=== PATIENT | female | born 1985 | race Caucasian/White ===

== ENCOUNTER → 2020-08-12 00:08 | Outpatient (CLI) | payer BC, SELFPAY ==
[2020-08-12 18:21] LABS: SARS-CoV-2 RNA PCR Negative
== END ==
PROVIDERS: PCP Family Medicine; Visit Provider Obstetrics & Gynecology
DX: Z01.812 Encounter for preprocedural laboratory examination (principal); Z20.822 Contact with and (suspected) exposure to COVID-19
CPT/HCPCS: C9803; U0003; U0005

== ENCOUNTER 2020-08-14 02:00 | Day surgery (SDC) | payer BC, SELFPAY ==
[2020-08-11 18:09] VITALS: BMI 29.7
--- NOTE | 2020-08-13 13:00 | WPDANESEPPF ---
Anes - Initial Pre Proc Eval Procedure: Operation Date: 08/14/20 13:15 Proposed Procedures p Suction Dilatation and Curettage - Dragan Connolly MD Date/Time: 08/13/20 13:00 Surgeon: Dragan Connolly MD Pre Op Diagnosis: missed AB Patient Data Age: 35 Gender: F Height: 1.65 m Weight: 81 kg Allergies Allergy/AdvReac Type Severity Reaction Status Date / Time No Known Allergies Allergy Verified 08/14/20 11:19 Home Medications Medication Instructions Recorded Confirmed Type albuterol sulfate 90 mcg/actuation 2 inhalation INHALATION Q4-6H PRN 02/19/19 08/11/20 History breath activated powder inhaler cholecalciferol (vitamin D3) 125 125 mcg PO DAILY 06/02/20 08/14/20 History mcg (5,000 unit) capsule montelukast 10 mg tablet 10 mg PO DAILY tablet 06/02/20 08/14/20 History Patient hx anesthesia problems: none Family hx anesthesia problems: none PMFSH Past Medical History Medical History (Updated 08/13/20 @ 13:01 by Jamari Signh DO) Asthma Environmental allergies Exercise-induced asthma GERD (gastroesophageal reflux disease) Hx of Raynaud's syndrome Irritable bowel syndrome with constipation and diarrhea Raynaud disease Family History Family History Father Diabetes mellitus Grandparent Diabetes mellitus Family history of cardiovascular disease Mother Depression Hypertension Family history of elevated blood lipids Sibling Family history of cardiovascular disease Social History Social History Smoking status: Never smoker Smoking end date: 04/17/14 Alcohol intake: current Substance use: never Substance use type: does not use Living arrangements: with family Gender identity (if verbalized by the patient): Female Sexual Orientation (if Verbalized by the Patient): Straight or Heterosexual Spiritual care concerns: No Anes - Eval Final PreProcedure Day of Procedure 08/13/20 13:00 Patient weight: overweight Heart: regular rate and rhythm Lungs: clear to auscultation and normal air movement Airway: Mallampati scale class II Neurological: alert and oriented Last oral intake: >/= 8 hours ASA classification: II Emergent: no Anesthetic plan: proceed Anesthesia type and monitoring: general GIVS and standard monitoring Informed Consent: The patient's anesthetic plan and its attendant risks and benefits were discussed with the patient/family/POA. Questions were solicited and answers provided to the satisfaction of the patient/family/POA.
[2020-08-14] MEDS: LACTATED RINGERS 1,000 ML 30 ML IV CONT (11:45)
[2020-08-14] MEDS: ACETAMINOPHEN 500 MG TABLET 1000 MG PO (11:46)
[2020-08-14 11:48] VITALS: BP 136/81; PULSE 94; RESP 16; TEMP 36.6; O2SAT 100
--- NOTE | 2020-08-14 12:58 | PM.IMHP ---
H&P: HPI History of Present Illness Date/Time: 08/14/20 12:58 35 y/o G1 with LMP 06/03/20. Ultrasound exam shows an intrauterine fluid collection, but no embryo seen, despite an hcg level of 18.752. Follow up ultrasound exam a week later showed no significant changes. She has had no vaginal bleeding. Chief Complaint: Miscarriage Review of Systems Review of Systems: All systems reviewed & are unremarkable except as noted in HPI and below PMFSH Past Medical History Medical History Asthma Environmental allergies Exercise-induced asthma GERD (gastroesophageal reflux disease) Hx of Raynaud's syndrome Irritable bowel syndrome with constipation and diarrhea Raynaud disease Family History Family History Father Diabetes mellitus Grandparent Diabetes mellitus Family history of cardiovascular disease Mother Depression Hypertension Family history of elevated blood lipids Sibling Family history of cardiovascular disease Social History Social History Smoking status: Never smoker Smoking end date: 04/17/14 Alcohol intake: current Substance use: never Substance use type: does not use Living arrangements: with family Gender identity (if verbalized by the patient): Female Sexual Orientation (if Verbalized by the Patient): Straight or Heterosexual Spiritual care concerns: No Meds Home Medications and Allergies Home Medications Medication Instructions Recorded Confirmed Type albuterol sulfate 90 mcg/actuation 2 inhalation INHALATION Q4-6H PRN 02/19/19 08/11/20 History breath activated powder inhaler cholecalciferol (vitamin D3) 125 125 mcg PO DAILY 06/02/20 08/14/20 History mcg (5,000 unit) capsule montelukast 10 mg tablet 10 mg PO DAILY tablet 06/02/20 08/14/20 History Allergies Allergy/AdvReac Type Severity Reaction Status Date / Time No Known Allergies Allergy Verified 08/14/20 11:19 Vital Signs Vital Signs - 24 hr 08/14/20 11:48 Temperature 36.6 C Pulse Rate 94 Respiratory Rate 16 Blood Pressure 136/81 Pulse Oximetry 100 Exam Narrative: Exam Narrative: AVSS Const: Orientation/consciousness: patient oriented x3 Other: Well-developed, well-nourished female in no acute distress. Neck: Thyroid: thyroid normal Lymphatic: no lymphadenopathy noted (in neck, axilla or inguinal nodes) Resp: Effort & Inspection: normal respiratory effort Auscultation: clear to auscultation bilaterally Cardio: Rate: regular rate Rhythm: regular rhythm Heart sounds: S1 normal heart sound present and S2 normal heart sound present GI: Other: ABD: Soft, nontender, nondistended. No guarding or rebound tenderness. No hepatosplenomegaly. : General: Yes no CVA tenderness Other: External genitalia: normal female hair distribution, without lesion. Urethral meatus: no lesion, non prolapsed. Bladder: no mass, nontender Vagina: well-estrogenized, without lesion or discharge. No cystocele or rectocele. Cervix: no lesion or discharge. Uterus: small, anteverted, freely mobile, nontender Adnexa: no mass or tenderness. Anus/perineum: no lesions, nontender Back/Spine/Pelvis: Back: no CVA tenderness Skin: General skin exam: normal color and no rashes or lesions noted Neuro: General: patient oriented x3 Extrem: Other: Extremities: nontender with no edema Psych: Mental Status: mental status grossly normal Affect: normal affect Assessment and Plan Assessment and plan (1) Missed : Code(s): O02.1 - Missed Status: Acute Assessment and Plan: A: Missed SAB P: Offered expectant management vs. surgical treatment. She opts for the latter. Specifically, I have offered her a dilation and suction curettage. She understands risks of surgery to include risks of anesthesia, risks of pain, infecti
--- NOTE | 2020-08-14 13:56 | WPDHPUPDATE1 ---
History and Physical Update Update Date/Time: 08/14/20 13:56 History and Physical has been reviewed, including an updated exam of the patient. There are NO changes in the patient's condition. Risks, benefits, and alternatives have been discussed and questions answered. Patient agrees to proceed with procedure.
--- NOTE | 2020-08-14 14:38 | PM.PROC ---
Procedure Note - Detailed Date of procedure: 08/14/20 Pre-op diagnosis: missed AB Post-op diagnosis: same Procedure performed: Dilation and suction curettage Description of procedure: The patient was taken to the operating room where she was prepared and draped in the usual sterile fashion in the dorsal lithotomy position. The bladder was drained with a red rubber catheter. A sterile speculum was placed into the vagina. The anterior lip of the cervix was grasped with a single-tooth tenaculum. Ten mL of 1% lidocaine was administered in a paracervical block. The cervix was gently dilated using Hegar dilators until an 8mm dilator could be passed. The 8mm curved tip suction curette was advanced. Suction curettage was performed and products of conception were aspirated. Sharp curettage was then performed until a good uterine cry was noted. A final pass with the suction curette was made. The tenaculum was removed. Hemostasis was excellent. Sponge, lap, needle and instrument counts were correct. The patient was taken to the recovery room in stable condition. I was present and scrubbed for the entire procedure. Anesthesia: MAC and local (paracervical block) Surgeon: Dragan Connolly MD Estimated blood loss (mL): 50 Drains: No Packing: No Pathology: yes (endometrial curettings) Complications: None Condition: stable Disposition: PACU Findings: Products of conception noted.
[2020-08-14 14:40] VITALS: BP 114/72; PULSE 96; RESP 16; O2SAT 99
[2020-08-14] MEDS: KETOROLAC 15 MG/ML VIAL (*BKC) IV PUSH (15:05)
[2020-08-14 15:10] VITALS: BP 113/81; PULSE 74
== END 2020-08-14 15:25 | disposition home or self-care (01) ==
PROVIDERS: PCP Family Medicine; Visit Provider Obstetrics & Gynecology
PROC: (CPT 59820; principal; 2020-08-14 13:15)
DX: O02.1 Missed abortion (principal); Z79.51 Long term (current) use of inhaled steroids; J45.909 Unspecified asthma, uncomplicated; K21.9 Gastro-esophageal reflux disease without esophagitis; I73.00 Raynaud's syndrome without gangrene; K58.2 Mixed irritable bowel syndrome
CPT/HCPCS: 59820; 36415; 85461; 88305; A9270; J1885; J2250; J2704; J3010; J7120

== ENCOUNTER 2021-09-30 05:08 | Inpatient (IN) | payer OTHER, SELFPAY ==
[2021-09-30] VITALS (202 sets, daily range): BP systolic 98–157; BP diastolic 44–103; PULSE 62–154; RESP 16; TEMP 36.1–36.9; O2SAT 96–100; BMI 31.5
--- OUTSIDE RECORDS SUMMARY | 2021-09-30 05:12 | XMS_ITS ---
:1985 Author Care Team Providers Name Role Phone David Hodge Primary Care Provider Unavailable Allergies Code Code System Name Reaction Severity Status Onset NKDA ? Medications Name Status Start Date Stop Date ? ? albuterol sulfate HFA 90 mcg/actuation aerosol inhaler Active ? Not available INL 2 PFS PO Q 4 TO 6 H PRN AND PER THE ASTHMA ACTION PLAN Bentyl 10 mg capsule Completed ? 11/25/2014 take 1 capsule by oral route 3 times every day Bentyl 20 mg tablet Completed ? 06/05/2012 take 1 tablet by oral route 4 times every day Cipro 500 mg tablet Completed 11/25/2014 01/02/2018 take 1 tablet by oral route every 12 hours Lo Loestrin Fe 1 mg-10 mcg (24)/10 mcg (2) tablet Completed 12/01/2015 01/02/2018 take 1 tablet by oral route every day Microgestin FE 1/20 (28) 1 mg-20 mcg (21)/75 mg (7) tablet Compl eted 06/05/2012 03/25/2013 take 1 tablet by oral route every day montelukast 10 mg tablet Active ? Not caren ilable TAKE 1 TABLET BY MOUTH EVERY DAY NuvaRing 0.12 mg-0.015 mg/24 hr vaginal Completed 01/28/20 14 11/25/2014 insert 1 vaginal ring by vaginal route every month leave in place for 3 weeks, remove for 1 week omeprazole 10 mg capsule,delayed release Completed ? 09/11/2013 take 2 capsule by oral route every day before a meal Protonix 40 mg granules delayed-release packet Completed ? 11/25/2014 take 1 packet by oral route every day m ixed in 1 teaspoonful of applesauce or apple juice Relpax 20 mg tablet Completed ? 01/02/2018 take 1 tablet by oral route ; if headac he returns, the dose may be repeated after 2 hours, but nomore than two doses should be given within a 24-hour period.
[2021-09-30 06:03] LABS: Basophils Percent Auto 0.2 % (0.2-1.2); Eosinophils Absolute Auto 0.1 K/mm3 (0-0.3); Eosinophils Percent Auto 0.8 % (0-4.4); Hematocrit 31.9 % (37.0-47.0); Hemoglobin 10.2 g/dL (12.0-15.0); Immature Granulocyte Absolute 0.04 K/mm3 (0.00-0.031); Immature Granulocyte Percent A 0.6 % (0-0.5); Lymphocytes Percent Auto 17.3 % (18.3-44.2); Mean Corpuscular Hemoglobin 25.8 pg (26-34); Mean Corpuscular Volume 80.8 fl (80-100); Mean Platelet Volume 10.6 fl (7.4-10.4); Monocytes Absolute Auto 0.5 K/mm3 (0.1-0.6); Neutrophils Absolute Auto 4.7 K/mm3 (1.3-6.7); Neutrophils Percent Auto 73.1 % (45.5-73.1); Platelet Count Result 177 k/mm3 (150-375); Red Blood Count 3.95 M/mm3 (4.2-5.4); White Blood Count 6.4 K/mm3 (4.5-10.0)
[2021-09-30] MEDS: OXYTOCIN 30 UNITS/NS 500 ML 30 UNITS/500 ML BAG 6 UNITS IV CONT (06:14)
[2021-09-30] MEDS: LACTATED RINGERS 1,000 ML 125 ML IV CONT ×2 (06:14→10:23)
--- NOTE | 2021-09-30 07:20 | WPDOBADMIT ---
Obstetrics - Admit Note Admission Note: record reviewed. Additions to the history and/or subsequent changes in the physical findings follow. 36 y/o at 39 6/7 weeks gestation here for induction of labor. GBS neg. essentially uncomplicated. AVSS NST reactive TOCO: contractions every 2-5 min ABD soft, nontender, gravid, vertex EXT nontender Cervix 3/50/-2. Vertex. AROM with clear fluid. A: IUP at term with favorable cervix, desiring induction of labor. P: Oxytocin. Anticipate .
[2021-09-30] MEDS: fentaNYL CITRATE INJ (*CRX) 100 MCG/2 ML VIAL 50 MCG IV PUSH (09:28)
--- NOTE | 2021-09-30 10:10 | WPDANESEPP ---
Anes - Eval Pre Procedure Procedure: labor pain management Date/Time: 09/30/21 10:10 Surgeon: Mohsen Preop Diagnosis: Pain during labor Pre Op Diagnosis: IOL Patient Data Age: 36 Gender: F Height: 1.65 m Weight: 86 kg Last Vital Signs Temp 97.1 F L 09/30/21 07:26 Pulse 97 09/30/21 10:01 BP 132/79 09/30/21 10:01 O2 Del Method Room Air 09/30/21 05:33 Allergies Allergy/AdvReac Type Severity Reaction Status Date / Time No Known Allergies Allergy Verified 08/31/21 12:20 Home Medications Medication Instructions Recorded Confirmed Type albuterol sulfate 90 mcg/actuation 2 inhalation inhalation Q4-6H PRN 02/19/19 08/11/20 History breath activated powder inhaler Shortness Of Breath montelukast 10 mg tablet 10 mg PO DAILY 06/02/20 08/14/20 History prenat.vits,tj,enc-pvsa-llsta 1 tablet PO HS 08/31/21 08/31/21 History Laboratory Tests 09/30/21 09/30/21 09/30/21 05:30 05:30 05:30 WBC 6.4 K/mm3 K/mm3 (4.5-10.0) RBC 3.95 M/mm3 L M/mm3 (4.2-5.4) Hgb 10.2 g/dL L g/dL (12.0-15.0) Hct 31.9 % L % (37.0-47.0) MCV 80.8 fl fl (80-100) MCH 25.8 pg L pg (26-34) MCHC 32.0 g/dl g/dl (32-36) RDW 14.0 % % (11.5-14.5) Plt Count 177 k/mm3 k/mm3 (150-375) MPV 10.6 fl H fl (7.4-10.4) Immature Gran % (Auto) 0.6 % H % (0-0.5) Neut % (Auto) 73.1 % % (45.5-73.1) Lymph % (Auto) 17.3 % L % (18.3-44.2) Sharkey % (Auto) 8.0 % % (2.6-8.5) Eos % (Auto) 0.8 % % (0-4.4) Baso % (Auto) 0.2 % % (0.2-1.2) Lymph # (Auto) 1.10 K/mm3 K/mm3 (0.9-3.2) Sharkey # (Auto) 0.5 K/mm3 K/mm3 (0.1-0.6) Eos # (Auto) 0.1 K/mm3 K/mm3 (0-0.3) Baso # (Auto) 0.0 K/mm3 K/mm3 (0.0-0.1) Abs Immat Gran (auto) 0.04 K/mm3 H K/mm3 (0.00-0.031) Absolute Neuts (auto) 4.7 K/mm3 K/mm3 (1.3-6.7) Absolute Nucleated RBC 0.0 K/mm3 K/mm3 (0.0-0.012) Nucleated RBC % 0.0 % % (0.0-0.2) RPR Pending Blood Type B Positive Antibody Screen Negative Patient hx anesthesia problems: none Family hx anesthesia problems: none Results Review: All pre-operative results and documents have been reviewed as part of the pre-operative evaluation. [facility] Past Medical History Medical History Asthma Environmental allergies Exercise-induced asthma GERD (gastroesophageal reflux disease) Hx of Raynaud's syndrome Irritable bowel syndrome with constipation and diarrhea Raynaud disease Family History Family History Father Diabetes mellitus Grandparent Family history of cardiovascular disease Diabetes mellitus Mother Family history of elevated blood lipids Depression Hypertension Fibromyalgia Sibling Family history of cardiovascular disease Social History Social History Smoking status: Never smoker Second hand tobacco smoke exposure: Yes Smoking end date: 04/17/14 Alcohol intake: current Alcohol use details: 2 glasses of wine, twice a month Substance use: never Substance use type: does not use Gender identity (if verbalized by the patient): Female Sexual Orientation (if Verbalized by the Patient): Straight or Heterosexual Spiritual care concerns: No Exam Day of Procedure 09/30/21 10:10
--- NOTE | 2021-09-30 12:00 | PM.OBPNLAB ---
Pain Control Date/time seen: 09/30/21 16:30 Comments: Comfortable with epidural. AVSS NST reactive TOCO: contractions every 2-4 min Cervix 5/80/-1 Continue labor.
[2021-09-30 13:53] LABS: Rapid Plasma Reagin Non-Reactive (NonReactive)
--- NOTE | 2021-09-30 16:00 | PM.OBPNLAB ---
Pain Control Date/time seen: 09/30/21 16:30 Comments: AVSS NST reactive TOCO: contractions Cervix C/+2 Begin pushing.
--- NOTE | 2021-09-30 17:22 | P.PCNOB_ITS ---
OB - Delivery Note Procedure Delivery date: 09/30/21 Procedure: Induction of labor with VAVD Induction method: Per Pitocin Protocol Delivery augmentation: Rupture of Membranes Delivery monitor: External FHT, External Uterine and Internal Uterine Route of delivery: vacuum extraction Laceration Description: Perineal - 2nd Degree Delivery repair: vicryl (3-0) Specimen: Yes (cord blood) Quantitative Blood Loss (ml): 480 Anesthesia type: Epidural Disposition: PACU Complications: None Narrative: 36 yo at 39 6/7 weeks gestation who presented to the hospital for induction of labor. Oxytocin was administered intravenously. Amniotomy was performed with return of clear fluid. She received an epidural for pain control. Her labor progressed and her cervix dilated completely. She pushed with good effort and brought the vertex to the +2 of 3 station, in ROP position. She grew tired and pushing became less productive. Because of ma ternal exhaustion and persistent OP position, I offered her an operative delivery. We reviewed risks, benefits and alternatives, and decided to proceed with vacuum assisted vaginal delivery. The [employer] vacuum suction cup was applied to the vertex. Over 3 contractions, and with no pop-offs, the patient pushed while the head was gently flexed. The head rotated to the JOSHUA position and delivered to the perineum. Delivery of the body followed. The nose and mouth were bulb suctioned. After a delay, the cord was clamped and cut. The infant was handed off the field. Cord blood was collected. The placenta delivered spontaneously and was grossly normal in appearance. The usual 3 vessel cord was noted. A second degree midline perineal laceration was sustained. This was reapproximated using 3 0 Vicryl in the usual layered fashion. Excellent hemostasis resulted as did excellent reapproximation of the normal anatomy. Needle and instrument counts were correct. The patient was taken to recovery room in stable condition. The infant went to the nursery in stable condition. I was present and scrubbed for the entire delivery. [place] Baby Date of : 09/30/21 Time of : 17:01 Weeks of gestation at delivery: 39 gender: Male Weight (pounds): 7 Weight (ounces): 7 presentation: vertex position: Right Occiput Anterior Placenta delivery description: Spontaneous and Normal Configuration Cord Vessel Description: 3 Vessels and Delayed Cord Clamping score one minute: 8 score five minutes: 9
--- NOTE | 2021-09-30 17:23 | PM.OBDSVD ---
DS: Admitting Diagnosis Discharge Date 10/02/21 Admitting Diagnosis IUP at 39 6/7 weeks Favorable cervix DS: Discharge Diagnosis Discharge Diagnosis (1) Vacuum-assisted vaginal delivery: Code(s): Z37.9 - Outcome of delivery, unspecified Status: Acute OB - DS: Summary OB Procedures : NST OB Procedures Intrapartum: Vacuum extraction OB Procedures: : None Time Spent with Patient Time attestation: Total time spent providing and/or coordinating discharge services: DS: Data Data Completed and Pending Labs on day of discharge: Labs from last 24 hours 09/30/21 09/30/21 09/30/21 05:30 05:30 05:30 WBC 6.4 RBC 3.95 L Hgb 10.2 L Hct 31.9 L MCV 80.8 MCH 25.8 L MCHC 32.0 RDW 14.0 Plt Count 177 MPV 10.6 H Immature Gran % (Auto) 0.6 H Neut % (Auto) 73.1 Lymph % (Auto) 17.3 L [place] % (Auto) 8.0 Eos % (Auto) 0.8 Baso % (Auto) 0.2 Lymph # (Auto) 1.10 [place] # (Auto) 0.5 Eos # (Auto) 0.1 Baso # (Auto) 0.0 Abs Immat Gran (auto) 0.04 H Absolute Neuts (auto) 4.7 Absolute Nucleated RBC 0.0 Nucleated RBC % 0.0 RPR Non-reactive Blood Type B Positive Antibody Screen Negative Discharge Plan Discharge Attending physician on discharge: Dragan Connolly Consulting providers: Donnie Ruth ; Desiree Rincon ; Libby Baumann Discharging Clinician: Dragan Connolly Patient Disposition: Home, Self-Care Activity: pelvic rest Diet: regular Discharge Instructions: Call or return if temperature above 100.4? F, increased abdominal pain, increased vaginal bleeding or any new problems. Education: Mom and Baby Guide Given to: Mother Follow-Up: Call your delivering provider's office for an appointment to be seen in: 6 Weeks Mom [facility] baby [facility] follow-up appointment. Appointment Date/Time: October 04, 2021 at 11:00 am What to expect at your follow-up visit: Physical Assessment Call [phone] if you are unable to keep your appointment time. BREAST CARE: * Wear a snug supportive bra. * For engorgement discomfort: Breast Feeding: * Apply warm moist washcloths * Express milk as needed to relieve engorgement * Wear loose clothing * For sore nipples: * Identify correct latch-on * Apply warm moist washcloths before and after nursing * Air dry nipples after nursing * May apply Lansinoh cream to nipples EPISIOTOMY/PERINEAL CARE: * Until bleeding stops, use your laura bottle after urinating * Change your pad frequently throughout the day * You may take sitz baths several times a day (fill your bathtub with warm water and soak for 20 minutes.) Do NOT bathe in the water * No tub baths until seen by your physician - You may shower ACTIVITY: * Rest as much as possible. * Do not exercise or lift anything heavier than your baby (such as laundry or other children.) * Avoid stairs or driving as much as possible. * Do not put anything into the vagina. No douching, tampons, or sexual activity until seen by physician. NOTIFY PHYSICIAN IF YOU HAVE ANY QUESTIONS OR IF ANY OF THE FOLLOWING SYMPTOMS OCCUR: * If your episiotomy or incision becomes red, swollen, or more painful than what you have experienced in the hospital. * If your vaginal bleeding becomes foul smelling. * If your vaginal bleeding becomes more heavy than a period or if your bleeding changes from pink to bright red. However, you may pass an occasional walnut-sized clot once or twice for the first week . * If you experience a sharp, shooting pain in you calves. * If you discover a hard, reddened area on your breast or if you experience flu-like symptoms. DIET: * Eat regular, well-balanced meals. * Drink plenty of fluids daily. If , drink to thirst. Stand Alone Forms: General Discharg
[2021-09-30] MEDS: OXYTOCIN 30 UNITS/NS 500 ML 30 UNITS/500 ML BAG 125 UNITS IV CONT (17:31)
[2021-09-30] MEDS: BENZOCAINE 20% AER SPR (*SP) 56 GM CAN 1 SPRAY TOPICAL (19:00)
[2021-09-30] MEDS: IBUPROFEN 600 MG TABLET PO (19:00)
[2021-09-30] MEDS: WITCH HAZEL 40 PADS 1 PAD TOPICAL (19:00)
[2021-09-30] MEDS: ACETAMINOPHEN 325 MG TABLET 650 MG PO (23:51)
[2021-10-01] MEDS: IBUPROFEN 600 MG TABLET PO ×2 (04:28→16:12)
[2021-10-01 06:12] LABS: Hematocrit 27.1 % (37.0-47.0); Hemoglobin 8.6 g/dL (12.0-15.0)
[2021-10-01 07:30] VITALS: BP 92/52; PULSE 90; RESP 16; TEMP 36.4; O2SAT 100
[2021-10-01] MEDS: ACETAMINOPHEN 325 MG TABLET 650 MG PO (07:51)
[2021-10-01] MEDS: DOCUSATE SODIUM 100 MG CAPSULE PO ×2 (07:52→16:13)
[2021-10-01] MEDS: MULTIVIT/MIN/PREN/FOL AC/IRON TABLET 1 TAB PO (07:52)
[2021-10-01] MEDS: POLYSACCHARIDE IRON COMPLEX 150 MG CAPSULE PO ×2 (07:52→16:13)
--- NOTE | 2021-10-01 07:58 | WPDANLDPN2 ---
Anes-Prog Note L&D Date/Time: 10/01/21 07:58 Comfortable throughout: labor and delivery Neuraxial method: epidural Epidural/Spinal procedure site: clean & non-tender Neuro status: Neuro function grossly intact. Cardiovascular status: normal Respiratory status: normal Airway patency: baseline Mental status: baseline Post-Op hydration status: normal Vital Signs: Last Vital Signs Temp 36.7 C 09/30/21 23:05 Pulse 105 H 09/30/21 23:05 Resp 16 09/30/21 23:05 BP 120/73 09/30/21 23:05 Pulse Ox 99 09/30/21 21:22 O2 Del Method Room Air 09/30/21 05:33 Pain score (VAS): 3 I/O: Intake & Output 09/30/21 09/30/21 10/01/21 15:59 23:59 07:59 Intake Total 1000 2000 Output Total 633 Balance 1000 1367 Post-procedural complaints: none Patient feedback: Patient satisfied with anesthetic care.
--- NOTE | 2021-10-01 08:06 | PM.OBPNVD ---
OB - PN: Subj Subjective Date/time seen: 10/01/21 08:06 Patient comments: no complaints, pain well controlled and tolerating diet Mcdaniels feeding status: exclusively breast feeding Narrative: patient doing well this AM. No complaints. Pt reports increased perineal pain. She reports minimal bleeding. She is ambulating and voiding without difficulty. She is tolerating PO. She denies N/V, fever, chills. OB - PN: Obj Data Labs CBC & Chem 7: 10/01/21 04:34 Labs: Laboratory Results - last 24 hr 09/30/21 10/01/21 05:30 04:34 Hgb 8.6 L Hct 27.1 L RPR Non-reactive OB - PN A/P Plan day: 1 Plan: routine care Comments: patient doing well H/H stable will add [place] 5-325 mg for pain continue routine care Time Spent With Patient Time: Total time spent is greater than 50% in coordination of care (as documented) at patient's floor/unit and/or counseling patient: Time with patient: less than 15 minutes Review of Systems Review of Systems: All systems reviewed & are unremarkable except as noted in HPI and below Exam Const: General: comfortable and no acute distress Resp: Effort & Inspection: normal respiratory effort Cardio: Rate: regular rate GI: GI Palp: Yes Soft to palpation and No Tenderness to palpation present (GI) Auscultation: normal bowel sounds Other: fundus firm and below umbilicus. Psych: Affect: normal affect
[2021-10-01] MEDS: HYDROcodone/acetaminophen (*CRX) 5-325 MG TABLET 1 TAB PO ×2 (10:25→16:12)
[2021-10-01 10:30] VITALS: PULSE 90; RESP 16; O2SAT 100
[2021-10-01 11:38] VITALS: BP 114/79; PULSE 90; RESP 16; TEMP 36.6; O2SAT 97
[2021-10-01 13:30] VITALS: PULSE 90; RESP 16; O2SAT 97
--- NOTE | 2021-10-01 13:47 | PC.NURSE ---
[phone] Introductions were made, then consulted with patient to assess needs related to . Mother led the conversation with her experience feeding her so far. Mother works well with her with encouragement and education. Encouraged understanding of the benefits of skin to skin (unwrapping and placing vertically on her chest), responsive feeding and how to watch for early feeding signs, frequency of feeding on demand about every 8-12 times in 24 hours (every 2-3 hours), milk production, duration of feeding, signs of adequate intake/output and how to record on the feeding sheet. Reviewed positioning and ear, shoulder, hip alignment, supporting the breast, asymmetrical latch (off-center), and leading with the chin with a big open side gape. Infant latched optimally to the left breast in football position for about 5 min after multiple attempts to latch effectively. did swallow at the breast but did not maintain longer than 5 min. Mother denied discomfort. burped after self-detaching Education given to mother of how to visualize suck/swallow ratios and drinking at the breast. Mother states latches to the right breast easier and demonstrates understanding of effectively latching using the football positioning. Infant was able to maintain latch without discomfort to mother. Nipple care reviewed with optimal latch and good positioning. Suck/swallow ratios were good and mother voiced understanding what that visual looks like and sounds like. Reviewed good handwashing when or touching the breast/nipples to prevent infection. Resources used to facilitate learning were used with the visual handouts/ tool/mom and baby guide. Mother voiced understanding of responsive feedings, stimulating with skin to skin, hand expressed colostrum, touch, talking to infant to encourage if it has been 2 -3 hours since the start of the last , to call if does not latch or there is discomfort with . Reported to the primary RN.
--- NOTE | 2021-10-01 16:18 | PC.NURSE ---
[id number] Consulted with patient to assess needs related to . Mother led conversation with her experience with feeding baby so far. Mother works well with her infant with encouragement. Infant is sleepy and reluctant to breastfeed. Stimulated infant to wake and breastfeed with no effective attempts. RN syringe fed 1.2 mls of breastmilk to infant and placed skin to skin. Reviewed working with infant, breast, nipples and how to protect the nipples with an optimal deep latch, good positioning, and good hand washing. Encouraged understanding the benefits of skin to skin, responding to feeding cues, frequencies of feeding 8-12 times in 24 hours (approximately 2-3 hours), duration of feedings, milk production, intake/output feeding sheet and signs of adequate intake encouraging swallowing at the breast. Reviewed positioning and alignment, supporting breast, off-centered (asymmetrical latch) and leading with the chin with big open wide gape. roots, crawls and mother works with encouraging to breastfeed. is sleepy and reluctant to eat at this time. Mother reminded of feeding cues and to work with to latch when they are visualized.[id number] - Mother initiated pumping again to stimulate milk production and possibly syringe feed infant more colostrum. Resources used to facilitate learning were used from the mom and baby guide. Mother voiced understanding of the education shared, calling for assistance if the does not latch or if there is discomfort with . Reported to the primary RN.
[2021-10-01 20:00] VITALS: BP 117/78; PULSE 103; RESP 16; TEMP 36.8; O2SAT 99
[2021-10-02] MEDS: HYDROcodone/acetaminophen (*CRX) 5-325 MG TABLET 1 TAB PO ×2 (00:34→08:25)
[2021-10-02] MEDS: IBUPROFEN 600 MG TABLET PO ×2 (00:34→08:25)
--- NOTE | 2021-10-02 06:39 | PM.OBPNVD ---
OB - PN: Subj Subjective Date/time seen: 10/02/21 06:39 Patient comments: no complaints and pain well controlled baby status: doing well OB - PN: Obj Data Labs CBC & Chem 7: 10/01/21 04:34 Labs: Laboratory Results - last 24 hr 10/01/21 04:34 Hgb 8.6 L Hct 27.1 L OB - PN A/P Assessment and Plan (1) Vacuum-assisted vaginal delivery: Code(s): Z37.9 - Outcome of delivery, unspecified Status: Acute (2) : Code(s): Z34.90 - Encounter for supervision of normal , unspecified, unspecified trimester Status: Acute Time Spent With Patient Time: Total time spent is greater than 50% in coordination of care (as documented) at patient's floor/unit and/or counseling patient:
[2021-10-02 08:00] VITALS: BP 98/61; PULSE 108; RESP 18; TEMP 37.4; O2SAT 100
[2021-10-02] MEDS: POLYSACCHARIDE IRON COMPLEX 150 MG CAPSULE PO (08:22)
[2021-10-02] MEDS: MULTIVIT/MIN/PREN/FOL AC/IRON TABLET 1 TAB PO (08:23)
[2021-10-02] MEDS: DOCUSATE SODIUM 100 MG CAPSULE PO (08:24)
--- NOTE | 2021-10-02 13:46 | PC.NURSE ---
Patient viewed the discharge video Mother & Baby Care, The First Two Weeks . Patient was given the opportunity and encouraged to ask questions. Patient verbalized understanding of information shared and has been given the mother/baby guide for home reference.
[2021-10-04 10:55] VITALS: BP 119/86; PULSE 95; RESP 20; TEMP 36.9; O2SAT 99
== END 2021-10-02 15:54 | disposition home or self-care (01) | DRG 807 ==
LOC: ANHLDR 17:25 → ANHOB2 10-02 06:39 → ANHLDR 10-05 07:57 → ANHOB2 10-05 07:57
PROVIDERS: Admitting Provider Obstetrics & Gynecology; PCP Family Medicine; Visit Provider Obstetrics & Gynecology
DX: O99.42 Diseases of the circulatory system complicating childbirth (principal); Z37.0 Single live birth; Z3A.39 39 weeks gestation of pregnancy; I73.00 Raynaud's syndrome without gangrene; O36.8330 Maternal care for abnormalities of the fetal heart rate or rhythm, third trimester, not applicable or unspecified; O70.1 Second degree perineal laceration during delivery; O99.52 Diseases of the respiratory system complicating childbirth; J45.909 Unspecified asthma, uncomplicated; O99.62 Diseases of the digestive system complicating childbirth; K21.9 Gastro-esophageal reflux disease without esophagitis; K58.2 Mixed irritable bowel syndrome
CPT/HCPCS: 36415; 85014; 85018; 85025; 86592; 86850; 86900; 86901; A9270; J2590; J2795; J3010; J7120

== ENCOUNTER 2021-11-07 23:28 | Emergency (ER) | payer OTHER, SELFPAY ==
[2021-11-07 23:53] VITALS: BP 123/78; PULSE 106; RESP 20; TEMP 36.2; O2SAT 99
--- NOTE | 2021-11-08 00:39 | ED.GENADULT ---
HPI - General Adult General Chief complaint: Unspecified Stated complaint: rib pain/spasm, N/V Time Seen by Provider: 11/07/21 23:46 History of Present Illness HPI narrative: 36 year old female with a hx of cholecystectomy presents to the ER for evaluation of epigastic pain that radiates bilaterally around to the back. Describes the pain as sharp and stabbing, and caused her to vomit multiple times. Emesis was non-bloody and non-bilious. Following the vomiting, the pain was more dull. Pain is aggravated when lying flat. Attempted to take TUMS, but vomited it up. Denies fever. Denies constipation/diarrhea. Does have a hx of pancreatitis x1 over 10 years ago. Denies using EtOH. Recently had an uncomplicated vaginal x5 weeks ago. Related Data Home Medications Medication Instructions Recorded Confirmed albuterol sulfate 90 mcg/actuation 2 inhalation inhalation Q4-6H PRN 02/19/19 08/11/20 breath activated powder inhaler Shortness Of Breath montelukast 10 mg tablet 10 mg PO DAILY 06/02/20 08/14/20 prenat.vits,tj,[id number]-txoz-dnbbe 1 tablet PO HS 08/31/21 08/31/21 Allergies Allergy/AdvReac Type Severity Reaction Status Date / Time No Known Allergies Allergy Verified 11/08/21 00:51 Review of Systems Review of Systems: CONSTITUTIONAL: Denies fever, chills, or sweats. EYES: Denies visual changes, redness, or discharge. ENT: Denies rhinorrhea, congestion, sore throat, or otalgia. CARDIOVASCULAR: Denies chest pain, palpitations, or edema. RESPIRATORY: Denies cough or dyspnea. GASTROINTESTINAL: Reports epigastric pain, nausea, vomiting GENITOURINARY: Denies dysuria or hematuria. SKIN: Denies rash or itching. MUSCULOSKELETAL: Denies back pain, joint pain, or myalgia. NEUROLOGIC: Denies headache, numbness, dizziness, or weakness. PSYCHIATRIC: Denies anxiety or depression. [facility] Past Medical History Medical History Asthma Environmental allergies Exercise-induced asthma GERD (gastroesophageal reflux disease) Hx of Raynaud's syndrome Irritable bowel syndrome with constipation and diarrhea Raynaud disease Family History Family History Father Diabetes mellitus Grandparent Family history of cardiovascular disease Diabetes mellitus Mother Family history of elevated blood lipids Depression Hypertension Fibromyalgia Sibling Family history of cardiovascular disease Social History Social History Smoking status: Never smoker Second hand tobacco smoke exposure: Yes Smoking end date: 04/17/14 Alcohol intake: current Alcohol use details: 2 glasses of wine, twice a month Substance use: never Substance use type: does not use Gender identity (if verbalized by the patient): Female Sexual Orientation (if Verbalized by the Patient): Straight or Heterosexual Spiritual care concerns: No Exam Narrative: GENERAL: Well-appearing, well-nourished, no physical limitations, and in no acute distress. HEAD: Normocephalic, atraumatic. EYES: Conjunctivae normal, PERRLA and EOMI. CHEST: Clear to auscultation. No respiratory distress. No wheezes rales or rhonchi. No tenderness. HEART: Regular rate and rhythm. No murmur heard. Normal peripheral pulses. ABDOMEN: Soft, epigastric tenderness,, nondistended, normal active bowel sounds. BACK: No CVA tenderness EXTREMITIES: Normal range of motion. No edema. No clubbing or cyanosis SKIN: Warm, dry, no rash. No noted wounds NEURO: No focal deficits. Alert and oriented x3. MAEW. CN's II-XI intact bilaterally, normal gait PSYCH: Cooperative. Normal mood and affect. Course Vital Signs Vital signs: Vital Signs Temperature 36.2 C L 11/07/21 23:53 Pulse Rate 106 H 11/07/21 23:53 Respiratory Rate 20 11/07/21 23:53 Blood Pressure 123/78 11/07/21 23:53 Pulse Oximetry 99 11/07/21 23:53 Ox
[2021-11-08] MEDS: SODIUM CHLORIDE 0.9% IV 1,000 ML 999 ML IV CONT (00:48)
[2021-11-08] MEDS: ONDANSETRON INJ 4 MG/2 ML VIAL IV PUSH (00:49)
[2021-11-08] MEDS: BELLADONNA ALK/PHENOB ELIX 10 ML, MAG HYDROX/ALUMINUM HYD/SIMETH 30 ML, LIDOCAINE HCL 2... PO (01:05)
[2021-11-08 01:06] LABS: Appearance Urine Clear (Clear); Basophils Percent Auto 0.3 % (0.2-1.2); Bilirubin Urine 1+ (Negative); Blood Urine 3+ (Negative); Color Urine Yellow (Yellow); Eosinophils Percent Auto 0.5 % (0-4.4); Glucose Urine UA Negative (Negative); Hematocrit 37.6 % (37.0-47.0); Hemoglobin 11.4 g/dL (12.0-15.0); Immature Granulocyte Absolute 0.02 K/mm3 (0.00-0.031); Immature Granulocyte Percent A 0.3 % (0-0.5); Ketones Urine 1+ mg/dL (Negative); Leukocyte Esterase Ur 2+ LEU/UL (Negative); Lymphocytes Absolute Auto 0.34 K/mm3 (0.9-3.2); Lymphocytes Percent Auto 5.9 % (18.3-44.2); Mean Corpuscular HGB Conc 30.3 g/dl (32-36); Mean Corpuscular Hemoglobin 23.8 pg (26-34); Mean Corpuscular Volume 78.7 fl (80-100); Mean Platelet Volume 11.5 fl (7.4-10.4); Monocytes Absolute Auto 0.2 K/mm3 (0.1-0.6); Monocytes Percent Auto 3.8 % (2.6-8.5); Neutrophils Absolute Auto 5.1 K/mm3 (1.3-6.7); Neutrophils Percent Auto 89.2 % (45.5-73.1); Nitrate Urine Negative (Negative); Platelet Count Result 217 k/mm3 (150-375); Protein Urine 1+ mg/dL (Negative); Red Blood Count 4.78 M/mm3 (4.2-5.4); Red Cell Distribution Width 14.8 % (11.5-14.5); Specific Grav Ur >= 1.030 (1.001-1.035); Urobilinogen Urine 0.2 mg/dL (<2.0); White Blood Count 5.8 K/mm3 (4.5-10.0); pH Urine 5.5 (5.0-9.0)
[2021-11-08 01:07] VITALS: BP 125/83; PULSE 104; RESP 16; O2SAT 99
[2021-11-08 01:17] LABS: Bacteria Urine Trace /hpf; Mucus Urine Few /lpf; RBC Urine 51-75 /hpf (0-2); Squamous Epithelial Cell Urine Occasional /hpf (Few); WBC Urine 21-30 /hpf
[2021-11-08 01:19] LABS: Add Urine Microscopic? YES
[2021-11-08 01:23] LABS: Alanine Aminotransferase 56 U/L (6-35); Albumin Level 4.3 g/dL (3.5-5.1); Alkaline Phosphatase 154 U/L (38-126); Anion Gap 12 mmol/L (8-16); Aspartate Amino Transferase 136 U/L (14-36); Bilirubin,Total 0.7 mg/dL (0.2-1.3); Blood Urea Nitrogen 20 mg/dL (7-17); Carbon Dioxide 26 mmol/L (22-30); Chloride 101 mmol/L (98-107); Estimated CRCL calculation 87 ml/min; Estimated Glomerular Filt Rate > 60; Glucose 112 mg/dL (65-110); Lipase 134 U/L (23-300); Potassium 4.2 mmol/L (3.4-5.0); Sodium 139 mmol/L (137-145)
[2021-11-08] MEDS: NITROFURANTOIN MONOHYD MACROCR 100 MG CAP PO (01:51)
[2021-11-08 01:53] VITALS: BP 117/78; PULSE 72; RESP 18; O2SAT 98
== END 2021-11-08 01:54 | disposition home or self-care (01) ==
PROVIDERS: Emergency Provider Nurse Practitioner Family; PCP Family Medicine
DX: N39.0 Urinary tract infection, site not specified (principal); K21.9 Gastro-esophageal reflux disease without esophagitis; R10.13 Epigastric pain; J45.990 Exercise induced bronchospasm; I73.00 Raynaud's syndrome without gangrene; K58.2 Mixed irritable bowel syndrome; Z87.891 Personal history of nicotine dependence
CPT/HCPCS: 36415; 80053; 81001; 83690; 85025; 87086; 87088; 96361; 96374; 99284; A9270; J2405; J7030

== ENCOUNTER 2022-11-25 09:33 | Outpatient (CLI) | payer OTHER, SELFPAY ==
[2022-11-25 18:34] LABS: Alanine Aminotransferase 16 U/L (6-35); Albumin Level 4.1 g/dL (3.5-5.1); Alkaline Phosphatase 96 U/L (38-126); Anion Gap 6 mmol/L (8-16); Aspartate Amino Transferase 21 U/L (14-36); Bilirubin,Total 0.3 mg/dL (0.2-1.3); Blood Urea Nitrogen 19 mg/dL (7-17); Calcium 8.6 mg/dL (8.4-10.2); Carbon Dioxide 29 mmol/L (22-30); Chloride 104 mmol/L (98-107); Cholesterol 178 mg/dL (0-200); Estimated Glomerular Filt Rate > 60; Glucose 94 mg/dL (65-110); HDL Direct 38 mg/dL; Potassium 4.8 mmol/L (3.4-5.0); Sodium 139 mmol/L (137-145); Triglycerides 59 mg/dL (<150)
[2022-11-25 18:45] LABS: LDL Cholesterol Direct 119 mg/dL
[2022-11-25 19:06] LABS: Thyroid Stimulating Hormone 0.896 uIU/mL (0.465-4.680)
== END 2022-11-25 09:34 | disposition home or self-care (01) ==
LOC: ANHGOSHLAB 09:38
PROVIDERS: PCP Family Medicine; Referring Provider Nurse Practitioner Family; Visit Provider Nurse Practitioner Family
DX: Z00.00 Encounter for general adult medical examination without abnormal findings (principal)
CPT/HCPCS: 36415; 80053; 80061; 84443

== ENCOUNTER 2022-12-31 09:34 | Outpatient (CLI) | payer OTHER, SELFPAY ==
[2022-12-31 10:11] LABS: Basophils Percent Auto 0.4 % (0.2-1.2); Eosinophils Absolute Auto 0.1 K/mm3 (0-0.3); Eosinophils Percent Auto 1.5 % (0-4.4); Hematocrit 39.4 % (37.0-47.0); Immature Granulocyte Absolute 0.02 K/mm3 (0.00-0.031); Immature Granulocyte Percent A 0.4 % (0-0.5); Lymphocytes Absolute Auto 1.14 K/mm3 (0.9-3.2); Lymphocytes Percent Auto 24.8 % (18.3-44.2); Mean Corpuscular Hemoglobin 28.7 pg (26-34); Monocytes Absolute Auto 0.3 K/mm3 (0.1-0.6); Monocytes Percent Auto 5.9 % (2.6-8.5); Neutrophils Absolute Auto 3.1 K/mm3 (1.3-6.7); Platelet Count Result 154 k/mm3 (150-375); Red Blood Count 4.53 M/mm3 (4.2-5.4); White Blood Count 4.6 K/mm3 (4.5-10.0)
[2022-12-31 10:20] LABS: Cholesterol 157 mg/dL (0-200); HDL Direct 46 mg/dL; Triglycerides 94 mg/dL (<150)
[2022-12-31 10:31] LABS: LDL Cholesterol Direct 88 mg/dL
[2022-12-31 10:41] LABS: Hemoglobin A1C 4.9 % (<5.7)
[2023-01-05 10:38] LABS: Vitamin D 1,25 (OH)2 Total 58 pg/mL (18-72); Vitamin D2 1,25 (OH)2 <8 pg/mL; Vitamin D3 1,25 (OH)2 58 pg/mL
== END 2022-12-31 09:35 | disposition home or self-care (01) ==
PROVIDERS: PCP Family Medicine; Visit Provider Nurse Practitioner Family
DX: Z00.00 Encounter for general adult medical examination without abnormal findings (principal); R42 Dizziness and giddiness; E55.9 Vitamin D deficiency, unspecified; R51.9 Headache, unspecified
CPT/HCPCS: 36415; 80061; 82652; 83036; 84443; 85025

== ENCOUNTER 2023-07-04 14:50 | Outpatient (CLI) | payer OTHER, SELFPAY ==
[2023-07-04 18:17] LABS: Basophils Percent Auto 0.4 % (0.2-1.2); Eosinophils Absolute Auto 0.1 K/mm3 (0-0.3); Eosinophils Percent Auto 1.3 % (0-4.4); Hematocrit 40.7 % (37.0-47.0); Hemoglobin 13.5 g/dL (12.0-15.0); Immature Granulocyte Absolute 0.01 K/mm3 (0.00-0.031); Immature Granulocyte Percent A 0.2 % (0-0.5); Lymphocytes Absolute Auto 1.15 K/mm3 (0.9-3.2); Lymphocytes Percent Auto 24.2 % (18.3-44.2); Mean Corpuscular HGB Conc 33.2 g/dl (32-36); Mean Corpuscular Hemoglobin 28.5 pg (26-34); Mean Corpuscular Volume 85.9 fl (80-100); Monocytes Absolute Auto 0.2 K/mm3 (0.1-0.6); Monocytes Percent Auto 4.8 % (2.6-8.5); Neutrophils Absolute Auto 3.3 K/mm3 (1.3-6.7); Neutrophils Percent Auto 69.1 % (45.5-73.1); Platelet Count Result 179 k/mm3 (150-375); Red Blood Count 4.74 M/mm3 (4.2-5.4); Red Cell Distribution Width 12.5 % (11.5-14.5); White Blood Count 4.8 K/mm3 (4.5-10.0)
[2023-07-04 19:02] LABS: Alanine Aminotransferase 13 U/L (6-35); Albumin Level 4.3 g/dL (3.5-5.1); Alkaline Phosphatase 77 U/L (38-126); Anion Gap 6 mmol/L (8-16); Aspartate Amino Transferase 33 U/L (14-36); Bilirubin,Total 0.5 mg/dL (0.2-1.3); Blood Urea Nitrogen 18 mg/dL (7-17); Calcium 9.4 mg/dL (8.4-10.2); Carbon Dioxide 33 mmol/L (22-30); Chloride 100 mmol/L (98-107); Estimated Glomerular Filt Rate > 60; Glucose 110 mg/dL (65-110); Potassium 3.8 mmol/L (3.4-5.0); Sodium 139 mmol/L (137-145)
[2023-07-07 07:09] LABS: Triiodothyronine T3 Free 3.2 pg/mL (2.3-4.2)
[2023-07-08 03:33] LABS: Vitamin D 1,25 (OH)2 Total 36 pg/mL (18-72); Vitamin D2 1,25 (OH)2 <8 pg/mL; Vitamin D3 1,25 (OH)2 36 pg/mL
== END 2023-07-04 14:51 | disposition home or self-care (01) ==
LOC: ANHGOSHLAB 14:52
PROVIDERS: PCP Family Medicine; Visit Provider Nurse Practitioner Family
DX: R53.83 Other fatigue (principal); I10 Essential (primary) hypertension; E55.9 Vitamin D deficiency, unspecified; R79.89 Other specified abnormal findings of blood chemistry
CPT/HCPCS: 36415; 80053; 82607; 82652; 84439; 84443; 84481; 85025

== ENCOUNTER 2023-07-04 15:03 | Outpatient (CLI) | payer OTHER, SELFPAY ==
--- NOTE | ~2023-07-04 | XR_ITS ---
EXAMINATION: XR chest 2V 07/04/2023 15:27 INDICATION: Shortness of breath PROCEDURE: 2 view chest COMPARISON: 08/15/2007 FINDINGS: The lungs are clear. The cardiomediastinal silhouette is within normal limits. There are no pleural effusions. There is no pneumothorax suspected. IMPRESSION: 1: NO ACUTE CARDIOPULMONARY DISEASE. Reviewed, dictated and finalized at location A.
--- NOTE | ~2023-07-04 | XR_ITS ---
XR_CERV2-3V_CR DATE: 07/04/2023 15:28 INDICATION: Neck pain TECHNIQUE: AP, open-mouth, odontoid and lateral views COMPARISON: None FINDINGS: There is straightening of the cervical spine which may be due to muscle spasm. Slight levos coliosis of the cervical spine. C1 and C2 are normally aligned and the odontoid process is intact. No fracture or dislocation or locked facet or prevertebral soft tissue swelling. Cervical interspaces are well preserved. IMPRESSION: Straightening of the cervical spine and slight levoscoliosis Reviewed, dictated and finalized at Location A. Reviewed, dictated and finalized at location L.
--- NOTE | ~2023-07-04 | XR_ITS ---
XR shoulder LT min 2V DATE: 07/04/2023 15:27 INDICATION: Fall. Left shoulder injury, pain TECHNIQUE: 4 views COMPARISON: None FINDINGS: No fracture or dislocation, periosteal reaction or bone destruction or abnormal soft tissue calcification. IMPRESSION: Negative Reviewed, dictated and finalized at location L. IMPRESSION: Negative
== END 2023-07-04 15:04 ==
PROVIDERS: PCP Family Medicine; Visit Provider Nurse Practitioner Family
DX: M41.82 Other forms of scoliosis, cervical region (principal); M25.512 Pain in left shoulder; R06.02 Shortness of breath; R29.898 Other symptoms and signs involving the musculoskeletal system
CPT/HCPCS: 71046; 72040; 73030

== ENCOUNTER 2023-12-26 13:24 | Outpatient (CLI) | payer OTHER, SELFPAY ==
--- NOTE | ~2023-12-26 | CT_ITS ---
EXAMINATION: CTA brain carotid DATE: 12/26/2023 14:11 INDICATION: Chronic headache. TECHNIQUE: Computed tomographic angiography (CTA) of the head was performed without and with 100 mL O mnipaque-350 intravenous contrast. CTA of the neck was performed with intravenous contrast. Automated exposure control and iterative reconstruction technique were employed. The dose-length product was 1 550.61 mGy-cm. Maximum intensity projection and volume rendered 3D-reconstructions were created by royce moon technologist on a separate workstation. COMPARISON: None. 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 There is no acute ischemic infarct or intracranial hemorrhage. The ventricles are normal in s ize. There is mild mucosal thickening in the paranasal sinuses. The orbits are normal. The mastoid ai r cells are normal. The vertebral arteries are codominant. There is no significant stenosis of basila r artery or the posterior cerebral arteries. There is no significant stenosis of the intracranial int ernal carotid arteries or anterior or middle cerebral arteries. Anterior communicating artery is norm al. The posterior communicating arteries are normal. There is no aneurysm. NECK CTA: There are no pathologically enlarged lymph nodes. There is no significant stenosis of the v ertebral arteries. There is no visible plaque in the proximal internal carotid arteries. There is 0% stenosis of the proximal right internal carotid artery relative to normal distal artery lumen diamete r (NASCET criteria). There is 0% stenosis of the proximal left internal carotid artery relative to no rmal distal artery lumen diameter. There is mild cervical spondylosis. There is a benign bone island in T1 vertebral body. IMPRESSION: 1. No acute intracranial pathology. 2. No aneurysm or significant intracranial arterial stenosis. 3. 0% stenosis of the proximal internal carotid arteries relative to normal distal artery lumen diame ters (NASCET criteria). Reviewed, dictated and finalized at location A. IMPRESSION: 1. No acute intracranial pathology. 2. No aneurysm or significant intracranial arterial stenosis. 3. 0% stenosis of the proximal internal carotid arteries relative to normal dis yusra artery lumen diameters (NASCET criteria).
== END 2023-12-26 13:25 | disposition home or self-care (01) ==
PROVIDERS: PCP Nurse Practitioner; Visit Provider Nurse Practitioner
DX: R51.9 Headache, unspecified (principal); G89.29 Other chronic pain; Z68.29 Body mass index [BMI] 29.0-29.9, adult
CPT/HCPCS: 70496; 70498; Q9967

== ENCOUNTER 2024-06-15 10:43 | Outpatient (CLI) | payer OTHER, SELFPAY ==
[2024-06-15 11:34] LABS: Alanine Aminotransferase 14 U/L (6-35); Albumin Level 4.3 g/dL (3.5-5.1); Alkaline Phosphatase 70 U/L (38-126); Anion Gap 7 mmol/L (4-12); Aspartate Amino Transferase 19 U/L (14-36); Bilirubin,Total 0.5 mg/dL (0.2-1.3); Blood Urea Nitrogen 16 mg/dL (7-17); Calcium 9.1 mg/dL (8.4-10.2); Carbon Dioxide 28 mmol/L (22-30); Chloride 104 mmol/L (98-107); Cholesterol 162 mg/dL (0-200); Estimated Glomerular Filt Rate > 60; Glucose 88 mg/dL (65-110); HDL Direct 42 mg/dL; Potassium 4.6 mmol/L (3.4-5.0); Sodium 139 mmol/L (137-145); Triglycerides 71 mg/dL (<150)
[2024-06-15 11:38] LABS: Iron 94 ug/dL (37-170)
[2024-06-15 11:42] LABS: Hematocrit 40.2 % (37.0-47.0); Hemoglobin 13.5 g/dL (12.0-15.0); Mean Corpuscular HGB Conc 33.6 g/dl (32-36); Mean Corpuscular Hemoglobin 28.7 pg (26-34); Mean Corpuscular Volume 85.4 fl (80-100); Platelet Count Result 165 k/mm3 (150-375); Red Blood Count 4.71 M/mm3 (4.2-5.4); Red Cell Distribution Width 12.3 % (11.5-14.5)
[2024-06-15 11:44] LABS: LDL Cholesterol Direct 94 mg/dL
[2024-06-15 11:47] LABS: Percent Iron Saturation 20 % (20-50)
[2024-06-15 12:02] LABS: Vitamin D 25 Hydroxy 20.7 ng/mL
== END 2024-06-15 10:44 | disposition home or self-care (01) ==
LOC: ANHLAB 10:44
PROVIDERS: PCP Nurse Practitioner; Visit Provider Nurse Practitioner
DX: E78.5 Hyperlipidemia, unspecified (principal); R53.83 Other fatigue; E55.9 Vitamin D deficiency, unspecified
CPT/HCPCS: 36415; 80053; 80061; 82306; 82607; 83540; 83550; 84443; 85027

== ENCOUNTER 2024-06-29 08:35 | Outpatient (CLI) | payer OTHER, SELFPAY ==
--- OUTSIDE RECORDS SUMMARY | 2024-06-29 08:38 | XMS_ITS ---
Author Organization [facility] Address [address] [place] [address] Care Team Providers Care Accounts Payable Professional Name Role Phone Colton Whitaker Primary Care Provider Sindy Garcia Unavailable [phone] Allergies No Known Allergies REASON FOR VISIT Asthma follow-up - recent URI, but no asthma flares Medications Medication SIG (Take, Route, Frequency, Duration) Notes Start Date End Date Status Pulmicort Flexhaler 90 MCG/ACT 2 INH inhaled 2 times a day for 30 days 06/28/2023 Not-Taking Xyzal Allergy 24HR 5 MG 1 tablet in the evening Orally Once a day Active Budesonide 90 MCG/INH 2 INH INHALED 2 TIMES A DAY for 30 DAYS *Please review and pick correct strength-formulati on from [employer] options. If intended option is not shown, discontinue and re-order from Quick Search* 08/02/2023 Not-Taking Albuterol Sulfate HFA 108 (90 Base) MCG/ACT 2 puffs as needed Inhalation every 4 hrs for 30 days 02/28/2024 Active Montelukast Sodium 10 MG 1 tablet Orally Once a day for 90 days 02/28/2024 Active Arnuity Ellipta 100 MCG/ACT 1 puff(s) inhaled every 24 hours for 30 days 05/17/2023 Not-Taking PROAIR HFA 90 MCG/INH 2 PUFF(S) INHALED Q4-6 HOURS, PRN AND PER THE ASTHMA ACTION PLAN for 30 DAY(S) *Please review for potential replacement for e-prescription and drug interaction check* Active Montelukast Sodium 10 MG 1 tab(s) orally once a day for 90 days Not-Taking BUDESONIDE 90 mcg/inh 2 INH inhaled 2 times a day for 30 days 08/02/2023 Not-Taking ARNUITY ELLIPTA furoate 100 mcg 1 puff(s) inhaled every 24 hours for 30 days 05/17/2023 Not-Taking PULMICORT FLEXHALER 90 mcg/inh 2 INH inhaled 2 times a day for 30 days 06/28/2023 Not-Taking Social History Tobacco Use: Social History Observation Description Date Details (start date - stop date) Never Smoker NA - NA Smoking Smart Form: Question Answer Notes Are you a: never smoker Vital Signs Blood pressure systolic 173 mm Hg 02/28/20 24 Blood pressure diastolic 83 mm Hg 024 Height 65 in 02/28/2024 Weight 176.8 lbs 02/28/2024 BMI 29.42 kg/m2 02/28/2024 Oximetry 100 % 02/28/2024 Encounters Encounter Location Date Provider Diagnosis [facility] [address] [place] [address] 02/28/2024 Sindy Ashby Mild persistent asthma, uncomplicated J45.30 ; Allergic rhinitis due to pollen J30.1 ; Allergic rhinitis due to animal (cat) (dog) hair and dander J30.81 ; Other allergic rhinitis J30.89 ; Other chronic allergic conjunctivitis H10.45 and Elevated blood-pressure reading, without diagnosis of hypertension R03.0 Assessments Encounter Date Diagnosis (ICD Code) Assessment Notes Treatment Notes Treatment Clinical Notes Section Notes 02/28/2024 Mild persistent asthma, uncomplicated (ICD-10 - J45.30) Spirometry normal at last check. Restart Singulair and continue prn albuterol. Spirometry held today due to URI. 02/28/2024 Allergic rhinitis due to pollen (ICD-10 - J30.1) Roro clearly suffers from atopic disease based upon history and our skin testing. We discussed immunotherapy, but not interested at this time due to insurance coverage. 02/28/2024 Allergic rhinitis due to animal (cat) (dog) hair and dander (ICD-10 - J30.81) Follow allergen avoidance, meds and consider immunotherapy in the future 02/28/2024 Other allergic rhinitis (ICD-10 - J30.89) 02/28/2024 Other chronic allergic conjunctivitis (ICD-10 - H10.45) Given ocular signs and symptoms I encouraged allergy avoidance measures and meds as above. If symptoms persist, consider adding additional medications including intraocular antihistamine/mas t cell stabilizer, PRN. 02/28/2024 Elevated blood-pressure reading, without diagnosis of hypertension (ICD-10 - R03.0) BP elevated today and we discussed checking at home, f/u with PCP Plan Of Treatment Medication Medication Name Sig Start Date Stop Date Notes Albuterol Sulfate HFA 108 (9 0 Base) MCG/ACT 2 puffs as needed Inhalation every 4 hrs for 30 days 02/28/2024 Montelukast Sodium 10 MG 1 tablet Orally Once a day for 90 days 02/28/2024 Treatment Notes Assessment Notes Mild persistent asthma, uncomplicated Sp irometry normal at last check. Restart Singulair and continue prn albuterol. Spirometry held today due to URI. Allergic rhinitis due to pollen Roro clearly suffers from atopic disease based upon history and our skin testing. We discussed immunotherapy, but not interested at this time due to insurance coverage. Allergic rhinitis due to ani mal (cat) (dog) hair and dander Follow allergen avoidance, meds and consider immunotherapy in the future Other chronic allergic conjunctivitis Gi niki ocular signs and symptoms I encouraged allergy avoidance measures and meds as above. If symptoms persist, consider adding additional medications including intraocular antihistamine/mast cell stabilizer, PRN. Elevated blood-pressure read ing, without diagnosis of hypertension BP elevated today and we discussed checking at home, f/u with PCP Pending Test Test Name Order Date Spirometry 02/28/2024 Next Appt Details Follow Up: 3 Months, Reason: Spirometry/Flow Volume Loop Progress Notes * Denny MELGAROB:1985 (38 yo F)Acc No.[id number]:02/28/2024 Progress Notes Patient: Roro BOWENS Provider: David Ashby MD :1985 A ge:38 Y S ex:Female Date:02/28/2024 Address:[facility] [address] [place], [place]-[address] Pcp:Colton Whitaker Subjective: * Chief Complaints: * A sthma follow-up - recent URI, but no asthma flares * HPI: A sthma follow-up: Asthma Survey - Classification A sta severity classification M ild Persistent * Introduction: I had the pleasure of seeing David Melgar, a 38 year old with ARC and exercise induced athma presenting for f/u evaluation of asthma. She was last evaluated 05-17-2023. She is curerntly s ick with a URI and loss of voice. She was treated with amoxicillin for sinusitis 2 weeks ago. Feeling better, but lingering cough. She is using albuterol less than once a day. She did not start Arnuity earlier this year due to insurance coverage.? She has discontinued Singulair and unsure if beneficial. She reports post nasal drip, rhinorrhea. She is taking Xyzal at night and saline. She avoids Zyrtec due to drowsiness. Flonase caused throat pain. For a few weeks reports itching without rash. No new medications or supplements except she was treated with amoxicillin 2 weeks ago for sinusitis. She previously took Symbicort and caused difficulty sleeping at night. Nasal congestion and rhinorrhea increase around cats and she has a cat at home. Today, she reports no fevers, chills, night sweats or other constitutional symptoms. * ROS: A LLERGY: Positive p er the HPI and history, otherwise unremarkable.? S PECIAL SENSES: Positve for n one. C ONSTITUTIONAL: Positive for n one. E NT: Positive p er the HPI and history, otherwise unremarkable.? R ESPIRATORY: Positive p er the HPI and history, otherwise unremakable.? O PHTHALMOLOGY: Positive for p er the HPI and history, otherwise unremarkable. E NDOCRINOLOGY: Positive for n one. C ARDIOLOGY: Positive for n one. G ASTROENTEROLOGY: Positive for n one. U ROLOGY: Positive for n one. D ERMATOLOGY: Positive for p er the HPI and history, otherwise unremakable. N EUROLOGY: Positive for n one. H EMATOLOGY/LYMPH: Positive for n one. M USCULOSKELETAL: Positive for n one. P SYCHOLOGY: Positive for n one. A ll other review of systems per the HPI and history, otherwise unremarkable. * Medical History: * Surgical History: T onsillectomy & Adenoidectomy 06/15/1994Cholecystectomy 03/01/2006Wisdom teeth removal 02/15/2018D&C 2020 * Hospitalization/Major Diagno stic Procedure: D enies Past Hospitalization * Family History: F ather: alive, Yes, diagnosed with Diabetes mellitus type I. M other: alive, Yes, diagnosed with Hypertension. 1 sister(s) . . sister has heart condition. * Social History: M arital Status What is your marital status? m arried A lcohol Screening Do you ever drink alcoholic beverages? Y es Number of drinks per occasion: 2 Frequency? W aidan S jasonking Have you ever smoked tobacco: f ormer smoker Additional Findings: Tobacco Non-User E x-trivial cigarette smoker (<1/day) How old were you when you started smoking? 2 1 How old were you when you quit smoking? 2 9 How many cigarettes a day did you smoke? l ess than 5 Are you a : f ormer smoker S moking Smart Form Are you a: n ever smoker R ecreational drug use Have you ever used recreational drugs? Y es What kind of drugs? m arijuana D etails on consumption of certain products? Do you regularly consume products with aspartame; Equal or NutraSweet? N o Do you regularly consume products with artificial coloring??No Have you ever noticed worsening of your rash with these food items? N o E xercise What kind(s) of exercise do you perform regularly? b iking,yoga How often do you perform this exercise? w aidan A re any of the following personal care products containing fragrance, dye or preservatives used regularly? Shampoo: Y es Conditioner: N o Soap: N o Laundry Detergent: N o Fabric Softener: N o Deodorant: Y es Perfume, cologne, after shave: Y es Air freshners or other scented products: Y es Hair coloring dyes or rinses: Y es O ccupation Are you currenly employed? 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 number of years?12 Do you believe that your current or previous occupation has any bearing on your illness? N o Do you have any pending or planned legal action against your current or former employer which pertains to your medical illness? N o Do you anticipate that your evaluation will be used in any legal action against your current employer or former employer? N o Have you had any job with high exposure to fumes, chemicals, dust or other noxious substances? N o Are you currently a student? N o E nvironmental History Living environment: p rivate home,with pets Where is the home located? r ural Age of home: 4 2 How long have you lived there? 0 -1 years How many people live in the home? 2 H ome description Basement: Y es Any water damage in basement? N o Smokers in the home? N o Smokers outside the home? Y es Air Conditioning? Y es Central Air? Y es Forced air heating? Y es Gas or electric? g as Fireplace? Y es Used how often? o ther Wood burning stove? N o Do you vacuum the home? Y es Air purification systems? N o Pillow and mattress dust-proof encasings? N o Do you use a humidifier? N o Do you own any pets? Y es What kind(s)? (click all that apply) c ats Where do your pets sleep? b edroom,anywhere in the house Fabric softeners used? N o Plants in the home? N o Is there carpeting in your bedroom? Y es Age of carpet? 5 Do you have [id number] carpeting? N o What is the age of your mattress (years)? 1 What is the age of your pillow (years)? 2 What material are your bedding items made of? n atural fiber (e.g. cotton) Do you sleep with quilts or blankets or a duvet? Y es What material? n atural fiber (e.g. cotton) How many cats? 2 * Medications: T akingXyzal Allergy 24HR 5 MG Tablet 1 tablet in the evening Orally Once a day PROAIR HFA 90 MCG/INH AEROSOL 2 PUFF(S) INHALED Q4-6 HOURS, PRN AND PER THE ASTHMA ACTION PLAN , Notes to Pharmacist: *Please review for potential replacement for e-prescription and drug interaction check*Taking Xyzal Allergy 24HR 5 MG Tablet 1 tablet in the evening Orally Once a day Taking PROAIR HFA 90 MCG/INH AEROSOL 2 PUFF(S) INHALED Q4-6 HOURS, PRN AND PER THE ASTHMA ACTION PLAN , Notes to Pharmacist: *Please review for potential replacement for e-prescription and drug interaction check*Not-Taking/PRNARNUITY ELLIPTA furoate 100 mcg powder 1 puff(s) inhaled every 24 hours PULMICORT FLEXHALER 90 mcg/inh powder 2 INH inhaled 2 times a day BUDESONIDE 90 mcg/inh powder 2 INH inhaled 2 times a day Montelukast Sodium 10 MG Tablet 1 tab(s) orally once a day Arnuity Ellipta 100 MCG/ACT Aerosol Powder Breath Activated 1 puff(s) inhaled every 24 hours Pulmicort Flexhaler 90 MCG/ACT Aerosol Powder Breath Activated 2 INH inhaled 2 times a day Budesonide 90 MCG/INH POWDER 2 INH INHALED 2 TIMES A DAY , Notes to Pharmacist: *Please review and pick correct strength-formulation from [email or web address] options. If intended option is not shown, discontinue and re-order from Quick Search*Not-Taking/PRN ARNUITY ELLIPTA furoate 100 mcg powder 1 puff(s) inhaled every 24 hours Not-Taking/PRN PULMICORT FLEXHALER 90 mcg/inh powder 2 INH inhaled 2 times a day Not-Taking/PRN BUDESONIDE 90 mcg/inh powder 2 INH inhaled 2 times a day Not-Taking/PRN Montelukast Sodium 10 MG Tablet 1 tab(s) orally once a day Not-Taking/PRN Arnuity Ellipta 100 MCG/ACT Aerosol Powder Breath Activated 1 puff(s) inhaled every 24 hours Not-Taking/PRN Pulmicort Flexhaler 90 MCG/ACT Aerosol Powder Breath Activated 2 INH inhaled 2 times a day Not- Taking/PRN Budesonide 90 MCG/INH POWDER 2 INH INHALED 2 TIMES A DAY , Notes to Pharmacist: *Please review and pick correct strength-formulation from [email or web address] options. If intended option is not shown, discontinue and re-order from Quick Search*DiscontinuedMONTELUKAST SODIUM 10 mg tablet 1 tab(s) orally once a day MONTELUKAST SODIUM 10 mg tablet 1 tab(s) orally once a day Montelukast Sodium 10 MG Tablet 1 tab(s) orally once a day Medication List reviewed and reconciled with the patientDiscontinued MONTELUKAST SODIUM 10 mg tablet 1 tab(s) orally once a day Discontinued MONTELUKAST SODIUM 10 mg tablet 1 tab(s) orally once a day Discontinued Montelukast Sodium 10 MG Tablet 1 tab(s) orally once a day Medication List reviewed and reconciled with the patient * Allergies: N .K.D.A.no[Allergies Verified] Objective: * Vitals: B P:173/83mm Hg, HR:109/min, Pulse Oximetry:100%, ACT:22, Ht: 65 in, Wt: 176.8 lbs, BMI:29.42Index. * Examination: G eneral examination: General appearance: p leasant, well-developed, well-nourished. HEENT: c onjunctiva are clear bilaterally, no tenderness to palpation of the sinuses, TM's without evidence of acute infection, turbinates 2+ swollen and pale inferiorly bilaterally, clear rhinorrhea is present, no polyps noted, no septal perforation, posterior oropharynx is clear, no exudates, no tongue swelling, and uvula is midline. Oral cavity: n ormal, no lesions. Neck, thyroid : s upple, non-tender, no anterior cervical lymphadenopathy. Breasts : n ot performed. Heart: R RR, S1-S2, no murmurs, no rubs, no gallops. Lungs: c lear to auscultation and percussion in all lung zuniga, no wheezes or crackles. Neurologic exam: u nremarkable. Skin: normal, no rash. Peripheral pulses: n ormal (2+) bilaterally. Back: n ormal. Extremities: n ormal ROM, no clubbing, no cyanosis, no edema. Genitalia: n ot performed. Influenza Vaccine not administered R renae: P atient Reason Assessment: * Assessment: 1. M ild persistent asthma, uncomplicated - J45.30 (Primary) 2 . A llergic rhinitis due to pollen - J30.1 3 . A llergic rhinitis due to animal (cat) (dog) hair and dander - J30.81 4 . O ther allergic rhinitis - J30.89 5 . O ther chronic allergic conjunctivitis - H10.45 6 . E levated blood-pressure reading, without diagnosis of hypertension - R03.0 Plan: * Treatment: 2. A llergic rhinitis due to pollen Notes: Roro clearly suffers from atopic disease based upon history and our skin testing. We discussed immunotherapy, but not interested at this time due to insurance coverage. 3. A llergic rhinitis due to animal (cat) (dog) hair and dander Notes: Follow allergen avoidance, meds and consider immunotherapy in the future 4. O ther chronic allergic conjunctivitis Notes: Given ocular signs and symptoms I encouraged allergy avoidance measures and meds as above. If symptoms persist, consider adding additional medications including intraocular antihistamine/mast cell stabilizer, PRN. 5. E levated blood-pressure reading, without diagnosis of hypertension Notes: BP elevated today and we discussed checking at home, f/u with PCP * Procedure Codes: 9 6160 PT-FOCUSED HLTH RISK [id number] DOC MEDS VERIFIED W/PT OR RE * Preventive Medicine: Counseling: D iet a s tolerated. E xercise C ontinue activity as usual. M edication instruction: W atc for side effects of prescribed medications. E ducation: O ur staff spent an additional 30 minutes in direct contact with the patient educating them on their current diagnoses and proper treatment and prevention of symptoms and the proper use of medications. E ducation 2: O ur staff discussed the appropriate allergen avoidance measures and medication utilization including upper airway hygiene with nasal washes given the patient's clinical status and diagnoses. P atient education material sent to portal? Y es C are goal follow up plan Above Normal BMI Follow-up D ietary management education, guidance, and counseling B P Management: FIRST HYPERTENSIVE BP READING FOLLOW-UP PLAN: F ollow-up 1 month REFERRAL TO ALTERNATIVE / PRIMARY CARE PROVIDER: R eferral to general practitioner * Follow Up: 3 Months (Reason: Spirometry/Flow Volume Loop) * Billing Information: * Visit Code: 03313 Office Visit, Est Pt., Level 4. Modifiers: 25 * Procedure Codes: 08780 PT-FOCUSED HLTH RISK ASSMT. G8427 DOC MEDS VERIFIED W/PT OR RE. * COOPER Sign off status: Completed true * Provider: David Ashby MD Date: 04/29/2023 Generated for Ness rivero/Navneet/Yumiko on: 0 06/29/2024 08:38 AM CDT History and Physical Notes * HPI (History of Present Illness) Category Sub-Category Detail Notes Category Not es *Introduction I had the pleasure o f seeing Roro Melgar, a 38 year old with ARC and exercise induced athma presenting for f/u evaluation of asthma. She was last evaluated 05-17-2023. She is curerntly sick with a URI and loss of voice. She was treated with amoxicillin for sinusitis 2 weeks ago. Feeling better, but lingering cough. She is using albuterol less than once a day. She did not start Arnuity earlier this year due to insurance coverage. She has discontinued Singulair and unsure if beneficial. She reports post nasal drip, rhinorrhea. She is taking Xyzal at night and saline. She avoids Zyrtec due to drowsiness. Flonase caused throat pain. For a few weeks reports itching without rash. No new medications or supplements except she was treated with amoxicillin 2 weeks ago for sinusitis. She previously took Symbicort and caused difficulty sleeping at night. Nasal congestion and rhinorrhea increase around cats and she has a cat at home. Today, she reports no fevers, chills, night sweats or other constitutional symptoms Asthma follow-up Asthma Survey - Classification Coughing, wheezing, shortness of breath or tightness in the chest during the day: Twice a week or less Coughing, wheezing, shortnes s of breath or tightness in the chest at night: Once every 2 weeks Asthma severity classification: Mild Per sistent Allergic Rhinoconjunctivitis follow-up Telehealth/Telemedicine Examination Category Sub-Category Detail Notes Category Not es General examination HEENT: conjunctiva are clear bilaterally, no tenderness to palpation of the sinuses, TM's without evidence of acute infection, turbinates 2+ swollen and pale inferiorly bilaterally, clear rhinorrhea is present, no polyps noted, no septal perforation, posterior oropharynx is clear, no exudates, no tongue swelling, and uvula is midline Neck, thyroid : supple, non-tender, no anterior cervical lymphadenopathy Heart: RRR, S1-S2, no murmu rs, no rubs, no gallops Lungs: clear to auscultatio n and percussion in all lung zuniga, no wheezes or crackles Extremities: normal ROM, no clubb ing, no cyanosis, no edema General appearance: pleasant, well-devel oped, well-nourished Skin: normal, no rash Neurologic exam: unremarkable Oral cavity: normal, no lesions Breasts : not performed Peripheral pulses: normal (2+) bilatera lly Back: normal Genitalia: not performed Influenza Vaccine not administered Reason:: Penny ent Reason
--- OUTSIDE RECORDS SUMMARY | 2024-06-29 08:38 | XMS_ITS | Data Portability ---
Author Organization [facility] [place] Address [address] [place] [address] Assessment Encounter Date Assessment Date Assessment LastModified by Organization Details LastModified Time 04/28/2020 04/28/2020 Annual gynecological exam performed. Patient will come back in a year unless there are new symptoms. Not available 04/28/2020 15:06:16 Plan of Treatment Reminders Order Date Submit Date Provider Last Modified By Organization Details Last Modified Time Details Appointments None recorded. Lab CMP, serum or plasma 021 021 [facility] ([facility]), [address], [place], [address], 1 20:05:[address] [facility] ([facility]), [address], [place], [address], 1 20:05:28 TSH, serum or plasma 021 021 [facility] ([facility]), [address], [place], [address], 1 20:05:29 vitamin D, 25-hydrox y, total, serum 021 021 [facility] ([facility]), [address], [place], [address], 1 20:05:30 prolactin , serum 021 021 [facility] ([facility]), [address] [place] [address] Farhat Hanson, [place], [address], 1 20:05:29 vitamin B12 + folate, serum or blood 021 [facility] ([facility]), [address] [place] [address] Farhat Hanson, [place], [address], 1 20:05:27 Referral None recorded. Procedures None recorded. Surgeries None recorded. Imaging None recorded. Medication Orders None recorded. Patient TargetsNo targets recorded. Patient Instructions Encounter Date Encounter Id Patient Instructions Last Modified By Organization Details Last Modified Time 04/28/2020 [id number] [email or web address] Not available 12:33:33 Reason for Referral None Reported. Results Created Date Observation Date Name Description Value Unit Range Abnormal Flag Note LastModifiedBy Organization Detail LastModifiedTime 04/28/19 21 04/29/2020 vitam in B12 + folat e, serum or blood vitamin B12 652 pg/mL 232-12 45 Not Available [facility] ([facility]) [address] [place] [address] Dr Ruggiero, [place], [address], 04/29/2020 20:05:27 04/28/19 21 04/29/2020 vitam in B12 + folat e, serum or blood folate >20 NG/mL >4.59 Not Available [facility] ([facility]) [address] [place] [address] Dr Ruggiero, [place], [address], 04/29/2020 20:05:27 04/28/19 21 04/29/2020 CMP, serum or plasm a sodium 141 mEq/L 135-14 5 Not Available [facility] ([facility]) [address] [place] [address] Dr Ruggiero, [place], [address], 04/29/2020 20:05:28 04/28/19 21 04/29/2020 CMP, serum or plasm a potassium 4.0 mEq/L 3.5-5. 3 Not Available [facility] ([facility]) [address] [place] [address] Dr Ruggiero, [place], [address], 04/29/2020 20:05:28 04/28/19 21 04/29/2020 CMP, serum or plasm a chloride 100 mEq/L 97-108 Not Available [facility] ([facility]) [address] [place] [address] Dr Ruggiero, [place], [address], 04/29/2020 20:05:28 04/28/19 21 04/29/2020 CMP, serum or plasm a CO2 30 mEq/L 22-32 Not Available [facility] ([facility]) [address] [place] [address] Dr Ruggiero, [place], [address], 04/29/2020 20:05:28 04/28/19 21 04/29/2020 CMP, serum or plasm a glucose 97 mg/dL 65-99 Not Available [facility] ([facility]) [address] [place] [address] Dr Ruggiero, [place], [address], 04/29/2020 20:05:28 04/28/19 21 04/29/2020 CMP, serum or plasm a BUN 14 mg/dL 6-20 Not Available [facility] ([facility]) [address] [place] [address] Dr Ruggiero, [place], [address], 04/29/2020 20:05:28 04/28/19 21 04/29/2020 CMP, serum or plasm a creatinine 0.64 mg/dL 0.50-1 .00 Not Available [facility] ([facility]) [address] [place] [address] Dr Ruggiero, [place], [address], 04/29/2020 20:05:28 04/28/19 21 04/29/2020 CMP, serum or plasm a calcium 9.6 mg/dL 8.6-10 .4 Not Available [facility] ([facility]) [address] [place] [address] Dr Ruggiero, [place], [address], 04/29/2020 20:05:28 04/28/19 21 04/29/2020 CMP, serum or plasm a protein 6.9 g/dL 6.0-8. 3 Not Available [facility] ([facility]) [address] [place] [address] Dr Ruggiero, [place], [address], 04/29/2020 20:05:28 04/28/19 21 04/29/2020 CMP, serum or plasm a albumin 4.7 g/dL 3.5-5. 3 Not Available [facility] ([facility]) [address] [place] [address] Dr Ruggiero, [place], [address], 04/29/2020 20:05:28 04/28/19 21 04/29/2020 CMP, serum or plasm a alkaline phosphatase 86 IU/L 35-121 Not Available [facility] ([facility]) [address] [place] [address] Dr Ruggiero, [place], [address], 04/29/2020 20:05:28 04/28/19 21 04/29/2020 CMP, serum or plasm a ALT (SGPT) 14 IU/L <5-47 Not Available [facility] ([facility]) [address] [place] [address] Dr Ruggiero, [place], [address], 04/29/2020 20:05:28 04/28/19 21 04/29/2020 CMP, serum or plasm a AST (SGOT) 16 IU/L <5-40 Not Available [facility] ([facility]) [address] [place] [address] Dr Ruggiero, [place], [address], 04/29/2020 20:05:28 04/28/19 21 04/29/2020 CMP, serum or plasm a bilirubin, total <0.2 mg/dL <0.2-1 .2 Not Available [facility] ([facility]) [address] [place] [address] Dr Ruggiero, [place], [address], 04/29/2020 20:05:28 04/28/19 21 04/29/2020 CMP, serum or plasm a A/G ratio 2.1 mg/dL 1.1-2. 5 Not Available [facility] ([facility]) [address] [place] [address] Dr Ruggiero, [place], [address], 04/29/2020 20:05:28 04/28/19 21 04/29/2020 GFR, estim ated (eGFR ), serum estimated GFR (black) 136 mL/mi n/1.7 3m2 >59 Not Available [facility] ([facility]) [address] [place] [address] Dr Ruggiero, [place], [address], 04/29/2020 20:05:29 04/28/19 21 04/29/2020 GFR, estim ated (eGFR ), serum estimated GFR (other) 117 mL/mi n/1.7 3m2 >59 GFR Categ ories in Chron ic Kidne y Disea se (CKD) GFR Categ ory GFR (mL/m in/1. 73 sq. meter s) Inter preta tion G1 90 or great er Elizabeth l or high* G2 60-89 Mild decre ase* G3a 45-59 Mild to moder ate decre ase G3b 30-44 Moder ate to sever e decre ase G4 15-29 Sever e decre ase G5 14 or less Kidne y failu re *In the absen ce of kidelnnox y damag e, neith er GFR categ ory G1 or G2 fulfi ll the crite candido for CKD (Jalil ey Int Suppl 2013; 3.1-1 50) The CKD-E PI calcu latio n is inten ded for use in patie nts 18 years of age and older . Decre ased calcu latio n accur acy may be seen in patie nts takin g medic ation s that affec t renal excre tion, or in those patie nts with extre mes in muscl e mass or diet. Not Available [facility] ([facility]) [facility] [address] Ruggiero, [place], [address], 04/29/2020 20:05:29 04/28/19 21 04/29/2020 prola ctin, serum prolactin 14.70 NG/mL 4.79-2 3.30 Not Available [facility] ([facility]) [address] [place] [address] Dr Ruggiero, [place], [address], 04/29/2020 20:05:29 04/28/19 21 04/29/2020 TSH, serum or plasm a TSH reflex to FT4 1.51 mU/L 0.27-4 .20 Not Available [facility] ([facility]) [address] [place] [address] Dr Ruggiero, [place], [address], 04/29/2020 20:05:29 04/28/19 21 04/29/2020 vitam in D, 25-hy droxy , total , serum vitamin D 25-hydroxy 23.6 NG/mL 30.0-1 00.0 low Inter preta tion of Vitam in D 25 OH: < 20 ng/mL - Defic iency 20 - 29 ng/mL - Insuf ficie ncy 30 - 100 ng/mL - Suffi cienc y > 100 ng/mL - Super -ther apeut ic- toxic ity may occur above this level . Clini tj corre latio n requi red. Not Available [facility] ([facility]) [facility] [address] Ruggiero, [place], [address], 04/29/2020 20:05:30 04/28/19 21 04/30/2020 pap, LB Pap test thin prep Negati ve for Intrae pithel ial Lesion or Malign stephy normal ACCES GODFREY #: [id number] Sourc e: Cervi tj/E ndoce rvica l LMP: 04/17 Date Taken : 04/28 Speci men Type: ThinP rep Vial Date Repor rossana: 2020 Clini tj Data: Cytot ech: Vitor Floyd. Jeffrey r,CT( ASCP) Date Repor rossana: 2020 Speci men Adequ acy: Satis facto ry for evalu ation Endoc ervic al/tr ansfo rmati on zone compo nent prese nt Gener al Categ oriza tion: NEGAT MIKI FOR INTRA EPITH ELIAL LESIO N OR MALIG GINA This speci men has been paris zed by the ThinP rep Imagi ng Syste m, an inter activ e compu ter syste m which emily ts the lab in the scree alysia of ThinP rep Pap Test slide s. Dotty wing imagi ng, the slide was revie wed by a Cytot echno logis t and/o r Patho logis t. D N A A S S A Y S R E P O R T TEST NAME RESUL TS ----- ---- ----- -- HPV High Risk Scree n (TMA) ThinP rep Vial The human papil lomav irus (HPV) High Risk Scree n is an FDA-a pprov ed in-vi tro ampli fied nucle ic acid test for the quali tativ e detec tion of E6/E7 viral mRNA. Resul ts shoul d be corre lated with patie nt prese ntati on, histo ry, cervi tj cytol ogy and other clini tj and labor atory findi ngs. See https ://Doculynx/s ites/ deffiliberto lt/fi les/2 018-0 3/AW- 66683 _002_ 01.pd f for furth er infor matio n. Test perfo rmed by [facility] d/b/a [facility], [address], [place] [address] , Nick Tucker ra, DO, [facility]. HPV High Risk *HPV NOT DETEC ROSSANA (TYPE S 16, 18, 31, 33, 35, 39, 45, 51, 52, 56, 58, 59, 66, 68) *HPV: The human papil lomav irus (HPV) High Risk Branden floyd is an FDA-a pprov ed in-vi tro ampli fied nucle ic acid test for the quali tativ e detec tion of E6/E7 viral mRNA. [facility] ts shoul d be corre lated with patie nt prese ntati on, histo ry, cervi tj cytol ogy and other clini tj and labor atory findi ngs. See https ://Doculynx/s ites/ deffiliberto lt/fi les/2 018-0 3/AW- 51069 _002_ 01.pd f for [facility] er infor georgina n. Test perfo rmed by [facility], d/b/a [employer], [address], [place] [address] , Nick Tucker ra, DO, [facility]. End of Repor t Techn ical servi keshawn provi ded by [facility], [facility]/a [facility], [address] [place] [address] Harlan Chance MD, [facility]. Case revie wed and diagn osis rende red at [place], [employer]/a [employer], [address] [place] [address] Harlan Chance MD, Labor [employer]. CONFI DENTI AL Not Available [facility] ([facility]) [address], [place], [address], 04/30/2020 15:55:01 04/28/19 21 04/30/2020 HPV DNA, high- risk HPV high risk NOT DETECT ED normal Not Available [facility] ([facility]) [address] [place] [address] Dr Ruggiero, [place], [address], 04/30/2020 15:55:01 05/05/19 21 05/06/2020 CBC w/ auto diff WBC 4.1 K/uL 3.8-11 .5 Not Available [facility] ([facility]) [address] [place] [address] Dr Ruggiero, [place], [address], 05/06/2020 04:57:15 05/05/19 21 05/06/2020 CBC w/ auto diff red blood cell count (RBC) 4.49 M/mm3 3.60-5 .30 Not Available [facility] ([facility]) [address] [place] [address] Dr Ruggiero, [place], [address], 05/06/2020 04:57:15 05/05/19 21 05/06/2020 CBC w/ auto diff hemoglobin (HGB) 13.3 gm/dL 11.5-1 5.5 Not Available [facility] ([facility]) [address] [place] [address] Dr Ruggiero, [place], [address], 05/06/2020 04:57:15 05/05/19 21 05/06/2020 CBC w/ auto diff hematocrit (HCT) 38.9 % 35.2-4 6.4 Not Available [facility] ([facility]) [address] [place] [address] Dr Ruggiero, [place], [address], 05/06/2020 04:57:15 05/05/19 21 05/06/2020 CBC w/ auto diff MCV 86.6 fL 79.0-9 9.0 Not Available [facility] ([facility]) [address] [place] [address] Dr Ruggiero, [place], [address], 05/06/2020 04:57:15 05/05/19 21 05/06/2020 CBC w/ auto diff MCH 29.6 pg 26.9-3 5.0 Not Available [facility] ([facility]) [address] [place] [address] Dr Ruggiero, [place], [address], 05/06/2020 04:57:15 05/05/19 21 05/06/2020 CBC w/ auto diff MCHC 34.2 g/dL 30.4-3 4.8 Not Available [facility] ([facility]) [address] [place] [address] Dr Ruggiero, [place], [address], 05/06/2020 04:57:15 05/05/19 21 05/06/2020 CBC w/ auto diff RDW 41.2 fL 38.6-5 3.8 Not Available [facility] ([facility]) [address] [place] [address] Dr Ruggiero, [place], [address], 05/06/2020 04:57:15 05/05/19 21 05/06/2020 CBC w/ auto diff platelet count 160 K/cum m 137-39 7 Not Available [facility] ([facility]) [address] [place] [address] Dr Ruggiero, [place], [address], 05/06/2020 04:57:15 05/05/19 21 05/06/2020 CBC w/ auto diff neutrophils automated 62.4 % 41.0-7 7.0 Not Available [facility] ([facility]) [address] [place] [address] Dr Ruggiero, [place], [address], 05/06/2020 04:57:15 05/05/19 21 05/06/2020 CBC w/ auto diff lymphocytes automated 28.6 % 14.0-4 8.0 Not Available [facility] ([facility]) [address] [place] [address] Dr Ruggiero, [place], [address], 05/06/2020 04:57:15 05/05/19 21 05/06/2020 CBC w/ auto diff monocytes automated 6.6 % 4.0-13 .0 Not Available [facility] ([facility]) [address] [place] [address] Dr Ruggiero, [place], [address], 05/06/2020 04:57:15 05/05/19 21 05/06/2020 CBC w/ auto diff eosinophils automated 1.7 % 0.0-8. 0 Not Available [facility] ([facility]) [address] [place] [address] Dr Ruggiero, [place], [address], 05/06/2020 04:57:15 05/05/19 21 05/06/2020 CBC w/ auto diff basophils automated 0.5 % 0.0-1. 5 Not Available [facility] ([facility]) [address] [place] [address] Dr Ruggiero, [place], [address], 05/06/2020 04:57:15 05/05/19 21 05/06/2020 CBC w/ auto diff immature granulocyte automated 0.2 % 0.0-1. 0 Not Available [facility] ([facility]) [address] [place] [address] Dr Ruggiero, [place], [address], 05/06/2020 04:57:15 05/05/19 21 05/06/2020 beta- HCG, quant itati ve, serum or plasm a beta-HCG, serum, (quantitativ e) <1 mIU/m L HCG Refer ence Range s: Males : <0.2- 2.6 mIU/m L Nonpr egnan t Femal e: <0.2- 5 mIU/m L Post- menop ausal Femal e: <0.2- 8.3 mIU/m L Elizabeth l Pregn stephy: Week 3 hCG Range : 5.8-7 1.2 mIU/m L Week 4 hCG Range : 9.5-7 50 mIU/m L Week 5 hCG Range : 217-7 138 mIU/m L Week 6 hCG Range : 158-3 1795 mIU/m L Week 7 hCG Range : 3697- 04269 3 mIU/m L Week 8 hCG Range : 09099 -1495 71 mIU/m L Week 9 hCG Range : 15393 -1514 10 mIU/m L Week 10 hCG Range : 29326 -1869 77 mIU/m L Week 12 hCG Range : 94633 -2106 12 mIU/m L Week 14 hCG Range : 45634 -6253 0 mIU/m L Week 15 hCG Range : 28287 -7097 1 mIU/m L Week 16 hCG Range : 9040- 31766 mIU/m L Week 17 hCG Range : 8175- 02389 mIU/m L Week 18 hCG Range : 8099- 55323 mIU/m L Not Available [facility] ([facility]) [address], [place], [address], 05/06/2020 05:57:53 Result Notes None recorded. Problems Name Problem SNOMED Code Status Onset Date Resolution Date Notes Provider Name and Address Organization Details Recorded Time Adult health examinati on Active 2014 ROUTINE MEDICAL EXAM;Recor ded Elsewhere: No Locatio n: [facility]: EHR Chroni c: N Practice ID: 0001 Billa ble Time: 01:30:00 PM [facility] Available [facility] 0 21:40:12 Pain of breast 09886285 Active 2011 Mastodynia ;Recorded Elsewhere: No Locatio n: [facility]: EHR Chroni c: N Practice ID: 0001 Billa ble Time: 09:30:00 AM Not Available [facility] 0 21:40:12 Breast lump 84549429 Active 2013 Breast Lump Or Mass;Recor ded Elsewhere: No Locatio n: [facility]: EHR Chroni c: N Practice ID: 0001 Billa ble Time: 02:30:00 PM Not Available [facility] 0 21:40:12 test negative [id number] Active 2014 examinatio n or test, negative result;Rec orded Elsewhere: No Locatio n: [facility]: EHR Chroni c: N Practice ID: 0001 Billa ble Time: 01:30:00 PM [facility] Available [facility] 0 21:40:12 Dysmenorr denicea 154307262 Active 2013 Dysmenorrh ea;Recorde d Elsewhere: No Locatio n: [facility]: EHR Chroni c: N Practice ID: 0001 Billa ble Time: 02:45:00 PM Not Available [facility] 0 21:40:[address] Concept Active 2017 Encntr for general adult medical exam w/o abnormal findings;R ecorded Elsewhere: No Locatio n: [facility]: EHR Chroni c: N Practice ID: 0001 Billa ble Time: 02:00:00 PM Not Available [facility] 0 21:40:13 Removal of intrauter ine device Active 2016 Encounter for removal of intrauteri ne contracept miki device;Rec orded Elsewhere: No Locatio n: [facility]: EHR Chroni c: N Practice ID: 0001 Billa ble Time: 02:00:00 PM Not Available [facility] 0 21:40:13 Cervical, vaginal and vulval inflammat ory diseases [id number] Active 2012 INFLM CERV,VAG,V ULVA NEC;Record ed Elsewhere: No Locatio n: [facility]: EHR Chroni c: Y Practice ID: 0001 Billa ble Time: 04:45:00 PM Not Available [facility] 0 21:40:13 Microscop ic hematuria [id number] Active 2014 MICROSCOPI C HEMATURIA; Recorded Elsewhere: No Locatio n: [facility]: EHR Chroni c: N Practice ID: 0001 Billa ble Time: 01:30:00 PM Not Available [facility] 0 21:40:13 Family planning surveilla nce Active 2012 Contracept miki surveillan ce, unspecifie d;Recorded Elsewhere: No Locatio n: 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: EHR Chroni c: N Practice ID: 0001 Billa ble Time: 02:00:00 PM Not Available [facility] 0 21:40:13 Insertion of intrauter ine contracep tive device Active 2013 INSERTION OF IUD;Record ed Elsewhere: No Locatio n: [facility]: EHR Chroni c: N Practice ID: 0001 Billa ble Time: 01:45:00 PM Not Available [facility] 0 21:40:13 Irregular periods 69934583 Active 2013 Irregular periods;Re corded Elsewhere: No Locatio n: [facility]: EHR Chroni c: N Practice ID: 0001 Billa ble Time: 03:15:00 PM Not Available [facility] 0 21:40:13 Screening for malignant neoplasm of cervix Active 2011 Screening for malignant neoplasms of the cervix;Rec orded Elsewhere: No Locatio n: [facility]: EHR Chroni c: N Practice ID: 0001 Billa ble Time: 04:45:00 PM Not Available 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: EHR Chroni c: N Practice ID: 0001 Billa ble Time: 02:00:00 PM Not Available [facility] 0 21:40:13 Specializ ed medical examinati on Active 2014 Gynecologi tj Examinatio n;Recorded Elsewhere: No Locatio n: [facility]: EHR Chroni c: N Practice ID: 0001 Billa ble Time: 01:30:00 PM Not Available [facility] 0 21:40:14 Female genital organ symptoms [id number] Active 2011 Unspecifie d symptom associated with female genital organs;Rec orded Elsewhere: No Locatio [facility]: [facility]: EHR Chroni c: N Practice ID: 0001 Billa ble Time: 09:30:00 AM Not Available [facility] 0 21:40:14 Urinary tract infectiou s disease 37694642 Active 2014 UTI;Record ed Elsewhere: No Locatio n: [facility]: EHR Chroni c: N Practice ID: 0001 Billa ble Time: 01:30:00 PM Not Available [facility] 0 21:40:14 Problem Notes None recorded. Procedures Surgical History Date Name Laterality Status Provider Name and Address Organization Details Recorded Time 01/09/20 19 Date of Last Pap Smear completed [facility] 04/28/2020 15:06:59 04/17/19 18 extraction of wisdom tooth completed [facility] 04/28/2020 13:18:01 04/17/19 05 Cholecystectomy completed [facility] 04/28/2020 13:18:15 04/17/18 94 tonsillectomy and adenoidectomy completed [facility] 04/28/2020 13:18:31 Imaging Results None recorded. Procedure Notes None recorded. Medical Equipment None Reported. Allergies No known drug allergies Medications Name Sig Start Date Stop Date Status Note LastModified by Organization Details LastModified Time Bentyl 20 mg tablet take 1 tablet by oral route 4 times every day 06/05 completed Prescrib ed Elsewher e: Yes Loca tion: [facility] M odify By: kolby valdovinos DateTime : 05/17/19 12 04:45:00 PM Not Available Not Available Not Available Microgest in FE 05/06 (28) 1 mg-20 mcg (21)/75 mg (7) tablet take 1 tablet by oral route every day 03/25 completed Prescrib ed Elsewher e: No Locat ion: Ru moon [facility] odify By: kolby valdovinos DateTime : 06/05/19 13 01:30:00 PM Not Available Not Available Not Available omeprazol e 10 mg capsule,d elayed release take 2 capsule by oral route every day before a meal 09/11 completed Prescrib ed Elsewher e: Yes Loca tion: Ru moon [facility] odify By: sherine cazaresuntisak DateTime : 11/26/19 15 01:30:00 PM Not Available Not Available Not Available Cipro 500 mg tablet take 1 tablet by oral route every 12 hours 01/02 completed Prescrib ed Elsewher e: No Locat ion: uR moon [facility] odify By: kike cazaresuntisak DateTime : 11/26/19 15 01:30:00 PM Not Available Not Available Not Available Bentyl 10 mg capsule take 1 capsule by oral route 3 times every day 11/25 completed Prescrib ed Elsewher e: Yes Loca tion: Ru moon [facility] odify By: sherine logan DateTime : 07/17/19 14 02:30:00 PM Not Available Not Available Not Available monteluka st 10 mg tablet TAKE 1 TABLET BY MOUTH EVERY DAY active Not Available Not Available No t Available topiramat e 15 mg sprinkle capsule take 1 capsule by oral route 2 times every day in the morning and evening 01/02 completed Prescrib ed Elsewher e: Yes Loca tion: Ru moon [facility] odify By: kike logan DateTime : 06/05/19 13 01:30:00 PM Not Available Not Available Not Available albuterol sulfate HFA 90 mcg/actua tion aerosol inhaler INL 2 PFS PO Q 4 TO 6 H PRN AND PER THE ASTHMA ACTION PLAN active Not Available Not Available No t Available NuvaRing 0.12 mg-0.015 mg/24 hr vaginal insert 1 vaginal ring by vaginal route every month leave in place for 3 weeks, remove for 1 week 11/25 completed Prescrib ed Elsewher e: No Locat ion: Terripoppynicole moon [facility] odify By: sherine cazaresunter DateTime : 01/28/20 14 02:45:00 PM Not Available Not Available Not Available Relpax 20 mg tablet take 1 tablet by oral route ; if headache returns, the dose may be repeated after 2 hours, but nomore than two doses should be given within a 24-hour period. 01/02 completed Prescrib ed Elsewher e: Yes Loca tion: Ru Rios [facility] odify By: kike logan DateTime : 01/28/20 14 02:45:00 PM Not Available Not Available Not Available Singulair active Not Available Not Anel ilable Not Available Symbicort 80 mcg-4.5 mcg/actua tion HFA aerosol inhaler INL 2 PFS PO BID active Not Available Not Available No t Available Xyzal active Not Available Not Availa ble Not Available Protonix 40 mg granules delayed-r elease packet take 1 packet by oral route every day mixed in 1 teaspoon ful of applesau ce or apple juice 11/25 completed Prescrib ed Elsewher e: Yes [facility] By: sherine cazaresuntisak DateTime : 09/12/19 14 01:45:00 PM Not Available Not Available Not Available Lo Loestrin Fe 1 mg-10 mcg (24)/10 mcg (2) tablet take 1 tablet by oral route every day 01/02 completed Prescrib ed Elsewher e: No Locat ion: Ru Rios [facility] odify By: kike logan DateTime : 12/01/19 16 02:00:00 PM Not Available Not Available Not Available vitamin E (dl, acetate) 90 mg (200 unit) capsule 06/05 completed Prescrib ed Elsewher e: No [facility] By: kolby valdovinos DateTime : 07/05/19 12 09:30:00 AM Not Available Not Available Not Available Xiidra 5 % eye drops in a dropperet te instill 1 drop by ophthalm ic route 2 times every day into both eyes approxim ately 12 hours apart active Prescrib ed Elsewher e: Yes [facility] By: kike islasisak DateTime : 01/03/20 02:00:00 PM Not Available Not Available Not Available Vitals Date Recorded Body height Body mass index (BMI) Body weight Systolic blood pressure Diastolic blood pressure Provider Name and Address Organization Details Last Updated DateTime 03/31/2020 152.4 cm 34.4 kg/m2 35275.26 g 133 mm[Hg] 85 mm[Hg] Virginia Lyons [facility] 14:17:10 Date Recorded Body height Body mass index (BMI) Body weight Provider Name and Address Organization Details Last Updated DateTime 04/28/2020 152.4 cm 34 kg/m2 88830.07 g Virginia Lyons [facility] 04/28/2020 15:06:27 Date Recorded Systolic blood pressure Diastolic blood pressure Provider Name and Address Organization Details Last Updated DateTime 04/28/2020 130 mm[Hg] 76 mm[Hg] Deepali Gordillo, [facility]- [address], [place], [address], [facility] 05/06/2020 13:20:32 Social History None recorded. Functional Status None recorded. Mental Status None recorded. Family History Relationship Description Onset Age of this Age Resolved Age Notes LastModified by Organization Details LastModified Time Father Hypercholest erolemia Not available 2020 13:19:08 Father Diabetes mellitus Not available 2020 13:19:39 Mother Hypercholest erolemia Not available 2020 13:19:08 Mother Migraine Not available 04/28/2020 13:20:34 Mother Diverticulit is Not available 2020 13:20:41 Mother Hypertensive disorder Not available 2020 13:20:48 Mother Fibromyalgia Not availa ble 04/28/2020 13:20:57 Mother Asthma Not available 13:21:04 Maternal Aunt Diabetes mellitus Not available 2020 13:19:39 Maternal Aunt Carcinoma in situ of breast Not available 2020 13:20:23 Paternal Grandfather Diabetes mellitus Not available 2020 13:19:39 Paternal Grandfather Malignant tumor of lung Not available 2020 13:21:15 Paternal Grandmother Diabetes mellitus Not available 2020 13:19:39 Paternal Grandmother Carcinoma in situ of colon Not available 2020 13:20:02 Unspecified Relation Carcinoma in situ of colon GREAT GRANDM OM Not available 04/28/2020 13:20:02 Unspecified Relation Carcinoma in situ of breast MATERN AL GREAT AUNT Not available 04/28/2020 13:20:23 Sister Polycystic ovary syndrome Not available 2020 13:21:22 Sister Heart disease Not available 2020 13:21:37 Notes:Father: Diabetes melli tus type 2, Diabetes mellitus Great Grandmother: Cancer, colon High Cholesterol Maternal aunt: Cancer, breast, Diabetes mellitus Maternal grandmother: Hypertension Maternal Great Aunt: Cancer, breast Mother: Fibromyalgia, Diverticulosis, Migraines, Hypertension, Asthma, Hypertension, Asthma Paternal grandfather: Cancer, lung, Diabetes mellitus Paternal grandmother: Cancer, colon, Diabetes mellitus Sister: Polycystic ovarian syndrome, Heart disease, Ovarian Cyst, Polycystic ovarian syndrome Medical History Condition Response Acid Reflux (GERD) Y Asthma Y Gynecological History Statement/Question Response Date of Last Pap Smear 01/08/2019 Current Control Method None Date of LMP 04/09/2020 Obstetrics History GPAL:G 0 P 0 0 0 0 Past Encounters Encounter ID Performer Location Encounter Start Date Encounter Closed Date Diagnosis/Indication Diagnosis SNOMED-CT Code Diagnosis ICD10 Code Diagnosis Note [id number] Deepali Gordillo , [facility] [address] [address] 03/31/2020 14:11:42 03/31/2020 14:32:46 Pigmented skin lesion 651631547 L81.9 We agreed that she would return to see the derm at the plastic surgeons office where she had this area initially frozen off. It's appearance at this point does not look too concerning but highly recommend going to derm to ensure truly no changes of precancers /cancers/o r other skin conditions . She is in agreement. WIll call them for appt. Time spent in visit is a total of 15 mins with at least 50% of visit consisting of counseling and review of plan of care. [id number] Deepali Gordillo , [facility] [address] [address] 04/28/2020 14:59:48 05/02/2020 12:01:04 Gynecologic examination 32046138 Z01.419 Take Calcium with Vitamin D 1200mg daily if not receiving in daily diet. It is strongly advised to have an annual flu shot and up can obtain at most pharmacies . If you have not had a TDap shot in the last 10 years you should obtain one as well. Discussed with patient & provided with informatio n regarding Gardisil vaccine to prevent the 4 strains for HPV that cause cervical cancer if under age 26. Encourage safe sexual practices, to use condoms and limit partners if not already in a monogamous relationsh ip. Do monthly self breast exams. Have mammogram yearly or every other year depending on family history. BRCA testing is now available for patients with strong genetic history of female cancer. If interested contact the office. Engage in daily exercise of low impact aerobic exercise 45-60 minutes 4-5 times weekly. Avoid tobacco and illicit drugs as well as using moderation with alcohol intake less than 1-2 8 oz beverages daily. This lifestyle behavior pattern will lead to less health conditions and longer life span. If BMI greater than 25 weight watchers or dietary consult advised. Patient received above instructio ns, and questions have been answered. If you have any questions please call or respond to this email. Patient was made aware of the patient portal and may obtain a paper copy of today's plan if desired. Keep menstrual diary. If becomes a regular issues (light spotting) than we can do TVUS. Adult heal th examination [id number] Z00.00 N93.9 Return for lab work Health Concerns Section Related Observation LastModified by Organization Detlico juarez LastModified Time None Recorded Concern Status LastModified by Organization Details LastModified Time None Recorded Advance Directives Directive None Recorded Payers Encounter Date Sequence Insurance Name Policy Number Policy Bruner Covered Member ID Bruner Member ID Guarantor Name 03/31/2020 1 [employer] [id number] Roro Evans [id number] 04/28/2020 1 [facility]: (PPO) [id number] Roro Evans [id number] Notes Date Note Type Note Provider Name and Address Organization Details Recorded Time 03/31/2020 text/html Here for vulvar skin check for return of a mole that she once had frozen off at plastic surgeon/derm office. She is unsure when this area returned. Suddenly realized it was there again. Also noted that the center of it was white but then circular area has formed around it; looks the same as it did when I got it frozen off before but now it's got that white middle. It is not painful, itchy, tender to touch. It's color hasn't changed. It is approx the size of a dime. Deepali Gordillo [facility]- [address], [place], [address], [facility] 03/31/2020 14:29:55 04/28/2020 text/html Annual GYNReport ed bypatient.Menstrua l cycle:Normal menses; But has had an instance of light pink spotting 2wks prior to onset of menses recently. No pain. Not connected with SA. Neg urinary issues'Neg GI issues Neg vag d/c, itching odor. Urinary symptoms:No hematuria; No incontinence Vulva:No genital lesion Vagina:Normal vaginal discharge Breast:No breast pain; No breast lump; No nipple discharge Sexual complaints:No sexual complaints; No pain during intercourse; Normal libido Menopausal Symptoms:No menopausal symptoms; Normal vaginal lubrication Psychological symptoms:No depression; No anxiety; No PMDD Preventive measures:Encourage self breast examination; Encourage regular exercise; Encourage no tobacco use; Encourage regular mammograms starting age 40 Deepali Gordillo [facility]- [address], [place], [address], [facility] 05/07/2020 12:34:18 OBGyn Episode No OBEpisode recorded.
--- OUTSIDE RECORDS SUMMARY | 2024-06-29 08:38 | XMS_ITS | Clinical Summary ---
Author Organization [address] Address [address] [place] [id number] Care Team Providers Care Wet Finisher Name Role Phone Unknown, Notinfile Primary Care Provider Unavail able Allergies No known active allergies Medications budesonide (Pulmicort Flexhaler) 90 mcg/actuation inhaler every 12 hours 06/28/2023 Active fluticasone furoate (Arnuity Ellipta) 100 mcg/actuation inhaler 1 puff(s) inhaled every 24 hours for 30 days 05/17/2023 Active montelukast (SINGULAIR) 10 mg tablet daily Active benzonatate (TESSALON) 100 mg capsuleIndicati ons:Cough Take 1 capsule (100 mg total) by mouth 3 (three) times a day as needed for cough 42 capsule 02/02/2024 Active Active Problems No known active problems Encounters Date Type Department Care Team Description 04/08/2024 8:45 PM [facility] Telemedicine [facility] Virtual Care [address] [place] [phone] Emi Matthews NP Lower respiratory infection (Primary Dx) 04/08/2024 Patient Self-Triage [facility] [address] [place] [phone] Mychart, Generic Provider 04/08/2024 Patient Self-Triage [facility] [address] [place] [phone] Mychart, Generic Provider from Last 3 Months Social History Tobacco Use Types Packs/Day Years Used Date Smoking Tobacco: Never Assessed Personal Safety Answer Date Recorded Getting School Help Needed Not on file 02/01 Comments Unknown Sex and Gender Information Value Date Recorded Sex Assigned at Not on file Legal Sex Female 10:53 AM CDT Gender Identity Not on file Sexual Orientation Not on file Obstetrics History Last Filed Vital Signs Vital Sign Reading Time Taken Comments Blood Pressure 118/80 02/02/2024 2:51 PM CDT Pulse 83 02/02/2024 2:51 PM CDT Temperature 36.8 C (98.2 F) 02/02/2024 2:51 PM CDT Respiratory Rate 20 02/02/2024 2:51 PM CDT Oxygen Saturation 99% 02/02/2024 2:51 PM CDT Inhaled Oxygen Concentration - - Weight 79.4 kg (175 lb) 02/02/2024 2:51 PM CDT Height 165.1 cm (5' 5 ) 02/02/2024 2:51 PM CDT Body Mass Index 29.12 02/02/2024 2:51 PM CDT Plan of Treatment Health Maintenance Due Date Last Done Comments Cervical Cancer Screening 1985 Depression Screening 1987 Hepatitis C Screening 1987 Varicella Vaccines (1 of 2 - 13+ 2-dose series) 2000 Hepatitis B Screening 2005 Regular Well Visit/Exam 18-64 2005 Pneumococcal vaccine <65 (1 of 2 - PCV) 2006 Covid-19 Vaccine (2023-2 5 season) 2023 03/21/2021, 05/22/2020, 05/01/2020 Influenza Vaccine (#1) 2023 3, 06/12/2021 DTaP/Tdap/Td Vaccine (2 - Td or Tdap) 07/12/2031 07/11/2021 HPV Vaccines Aged Out No longer eligi ble based on patient's age to complete this topic Insurance [facility] H[facility]/PPO Address: [facility] [address] [place] [address] Care Teams Wet Finisher Relationship Specialty Start Date End Date Unknown, Notinfile PCP - General 02/02/24
--- OUTSIDE RECORDS SUMMARY | 2024-06-29 08:38 | XMS_ITS ---
Author Organization [facility] Address [address] [place] [address] Care Team Providers Care Airport Refueling Handler Name Role Phone Colton Whitaker Primary Care Provider Sindy Garcia Unavailable [phone] REASON FOR VISIT Asthma follow-up - recent URI, but no asthma flares Medications Medication SIG (Take, Route, Frequency, Duration) Notes Start Date End Date Status Arnuity Ellipta 100 MCG/ACT 1 puff(s) inhaled every 24 hours for 30 days 05/17/2023 Not-Taking Pulmicort Flexhaler 90 MCG/ACT 2 INH inhaled 2 times a day for 30 days 06/28/2023 Not-Taking Budesonide 90 MCG/INH 2 INH INHALED 2 TIMES A DAY for 30 DAYS *Please review and pick correct strength-formulati on from [employer] options. If intended option is not shown, discontinue and re-order from Quick Search* 08/02/2023 Not-Taking Montelukast Sodium 10 MG 1 tablet Orally Once a day for 90 days Active Albuterol Sulfate HFA 108 (90 Base) MCG/ACT 2 puffs as needed Inhalation every 4 hrs for 30 days Active Montelukast Sodium 10 MG 1 tab(s) orally once a day for 90 days Not-Taking PULMICORT FLEXHALER 90 mcg/inh 2 INH inhaled 2 times a day for 30 days 06/28/2023 Not-Taking BUDESONIDE 90 mcg/inh 2 INH inhaled 2 times a day for 30 days 08/02/2023 Not-Taking PROAIR HFA 90 MCG/INH 2 PUFF(S) INHALED Q4-6 HOURS, PRN AND PER THE ASTHMA ACTION PLAN for 30 DAY(S) *Please review for potential replacement for e-prescription and drug interaction check* Active ARNUITY ELLIPTA furoate 100 mcg 1 puff(s) inhaled every 24 hours for 30 days 05/17/2023 Not-Taking Xyzal Allergy 24HR 5 MG 1 tablet in the evening Orally Once a day Active Encounters Encounter Location Date Provider Diagnosis [facility] [address] [facility] [address] [place] [address] 05/01/2024 Sindy Ashby Mild persistent asthma, uncomplicated J45.30 ; Allergic rhinitis due to pollen J30.1 ; Allergic rhinitis due to animal (cat) (dog) hair and dander J30.81 ; Other allergic rhinitis J30.89 ; Other chronic allergic conjunctivitis H10.45 and Elevated blood-pressure reading, without diagnosis of hypertension R03.0 Assessments Encounter Date Diagnosis (ICD Code) Assessment Notes Treatment Notes Treatment Clinical Notes Section Notes 05/01/2024 Mild persistent asthma, uncomplicated (ICD-10 - J45.30) Spirometry normal at last check. Restart Singulair and continue prn albuterol. Spirometry held today due to URI. 05/01/2024 Allergic rhinitis due to pollen (ICD-10 - J30.1) Roro clearly suffers from atopic disease based upon history and our skin testing. We discussed immunotherapy, but not interested at this time due to insurance coverage. 05/01/2024 Allergic rhinitis due to animal (cat) (dog) hair and dander (ICD-10 - J30.81) Follow allergen avoidance, meds and consider immunotherapy in the future 05/01/2024 Other allergic rhinitis (ICD-10 - J30.89) 05/01/2024 Other chronic allergic conjunctivitis (ICD-10 - H10.45) Given ocular signs and symptoms I encouraged allergy avoidance measures and meds as above. If symptoms persist, consider adding additional medications including intraocular antihistamine/mas t cell stabilizer, PRN. 05/01/2024 Elevated blood-pressure reading, without diagnosis of hypertension (ICD-10 - R03.0) BP elevated today and we discussed checking at home, f/u with PCP Plan Of Treatment Medication Medication Name Sig Start Date Stop Date Notes Montelukast Sodium 10 MG 1 tablet Orally Once a day for 90 days Albuterol Sulfate HFA 108 (9 0 Base) MCG/ACT 2 puffs as needed Inhalation every 4 hrs for 30 days Treatment Notes Assessment Notes Mild persistent asthma, [...] discussed checking at home, f/u with PCP Next Appt Details Follow Up: 3 Months, Reason: Spirometry/Flow Volume Loop Progress Notes * Denny MELGAROB:1985 (39 yo F)Acc No.[id number]:05/01/2024 Progress Notes Patient: Roro BOWENS Provider: David Ashby MD :1985 A ge:38 Y S ex:Female Date:05/01/2024 [facility] [id number] Pcp:Colton Whitaker Subjective: * Chief Complaints: * 1 . Asthma follow-up - recent URI, but no asthma flares. * HPI: A sta follow-up: Asthma Survey - Classification A sthma severity classification M ild Persistent * Introduction: I had the pleasure of seeing David Melgar, a 38 year old with ARC and exercise induced athma presenting for f/u evaluation of asthma. She was last evaluated 05-17-2023. S he is curerntly s ick with a URI [...] is taking Xyzal at night and saline. S he avoids Zyrtec due to drowsiness. Flonase caused throat pain. F or a few weeks reports itching without rash.? No new medications or supplements except she was treated with amoxicillin 2 weeks ago for sinusitis. S he previously took Symbicort and caused difficulty sleeping [...] history, otherwise unremarkable. * Medical History: * Medications: T aking Xyzal Allergy 24HR 5 MG Tablet 1 tablet in the evening Orally Once a day , Taking PROAIR HFA 90 MCG/INH AEROSOL 2 PUFF(S) INHALED Q4-6 HOURS, PRN AND PER THE ASTHMA ACTION PLAN , Notes to Pharmacist: *Please review for potential replacement for e-prescription and drug interaction check*, Taking Montelukast Sodium 10 MG Tablet 1 tablet Orally Once a day , Taking Albuterol Sulfate HFA 108 (90 Base) MCG/ACT Aerosol Solution 2 puffs as needed Inhalation every 4 hrs , Not- Taking/PRN ARNUITY ELLIPTA furoate 100 mcg powder 1 puff(s) inhaled every 24 hours , Not-Taking/PRN PULMICORT FLEXHALER 90 mcg/inh powder 2 INH inhaled 2 times a day , Not-Taking/PRN BUDESONIDE 90 mcg/inh powder 2 INH inhaled 2 times a day , Not-Taking/PRN Montelukast Sodium 10 MG Tablet 1 tab(s) orally once a day , Not-Taking/PRN Arnuity Ellipta 100 MCG/ACT Aerosol Powder Breath Activated 1 puff(s) inhaled every 24 hours , Not-Taking/PRN Pulmicort Flexhaler 90 MCG/ACT Aerosol Powder Breath Activated 2 INH inhaled 2 times a day , Not-Taking/PRN Budesonide 90 MCG/INH POWDER 2 INH INHALED 2 TIMES A DAY , Notes to Pharmacist: *Please review and pick correct strength-formulation from [employer] options. If intended option is not shown, discontinue and re-order from Quick Search* Objective: * Vitals: * Examination: G eneral examination: General appearance: [...] Procedure Codes: 9 6160 PT-FOCUSED HLTH RISK ASSMT, G8427 DOC MEDS VERIFIED W/PT OR RE * Preventive Medicine: Counseling: D iet a s tolerated. E xercise C ontinue activity as usual. M edication instruction: W [facility] for side effects of prescribed medications. E [...] Loop) * Billing Information: * Visit Code: 14786 Office Visit, Est Pt., Level 4. Modifiers: 25 * Procedure Codes: 70659 PT-FOCUSED HLTH RISK ASSMT. G8427 DOC MEDS VERIFIED W/PT OR RE. * Electronic signature of Savanah Ashby MD on 06/29/2024 at 08:38 AM CDT Sign off status: Pending * Provider: David Ashby MD Date: 0 05/01/2024 Generated for Hortenciai josefa/Navneet/Malcolmitting on: 0 06/29/2024 08:38 AM CDT History [...]
--- OUTSIDE RECORDS SUMMARY | 2024-06-29 08:38 | XMS_ITS ---
Author Organization [facility] Address [address] [place] [address] Care Team Providers Care Flare Stitcher Name Role Phone Colton Whitaker Primary Care Provider UnavailSindy Harris Unavailable [phone] ZZ-Migration, Provider Unavailable Unavailab le REASON FOR VISIT [facility] Encounter Medications Medication SIG (Take, Route, Frequency, Duration) Notes Start Date End Date Status Montelukast Sodium 10 MG 1 tab(s) orally once a day for 90 days Active Arnuity Ellipta 100 MCG/ACT 1 puff(s) inhaled every 24 hours for 30 days 05/17/2023 Active Budesonide 90 MCG/INH 2 INH INHALED 2 TIMES A DAY for 30 DAYS *Please review and pick correct strength-formulatio [facility] options. If intended option is not shown, discontinue and re-order from Quick Search* 08/02/2023 Active Montelukast Sodium 10 MG 1 tab(s) orally once a day for 90 days Active PROAIR HFA 90 MCG/INH 2 PUFF(S) INHALED Q4-6 HOURS, PRN AND PER THE ASTHMA ACTION PLAN for 30 DAY(S) *Please review for potential replacement for e-prescription and drug interaction check* Active Pulmicort Flexhaler 90 MCG/ACT 2 INH inhaled 2 times a day for 30 days 06/28/2023 Active Encounters Encounter Location Date Provider Diagnosis [facility] [address] [place] [address] 09/30/2023 Provider ZZ-Migration Allergic rhinitis due to pollen J30.1 and Mild persistent asthma, uncomplicated J45.30 Assessments Encounter Date Diagnosis (ICD Code) Assessment Notes Treatment Notes Treatment Clinical Notes Section Notes 09/30/2023 Allergic rhinitis due to pollen (ICD-10 - J30.1) 09/30/2023 Mild persistent asthma, uncomplicated (ICD-10 - J45.30) Plan Of Treatment Medication Medication Name Sig Start Date Stop Date Notes Montelukast Sodium 10 MG 1 tab(s) orally once a day for 90 days Arnuity Ellipta 100 MCG/ACT 1 puff(s) inhaled every 24 hours for 30 days 05/17/2023 Budesonide 90 MCG/INH 2 INH INHALED 2 TIMES A DAY for 30 DAYS 08/02/2023 *Please review and pick correct strength-formulation from [employer] options. If intended option is not shown, discontinue and re-order from Quick Search* PROAIR HFA 90 MCG/INH 2 PUFF(S) INHALED Q4-6 HOURS, PRN AND PER THE ASTHMA ACTION PLAN for 30 DAY(S) *Please review for potential replacement for e-prescription and drug interaction check* Pulmicort Flexhaler 90 MCG/ACT 2 INH inhaled 2 times a day for 30 days 06/28/2023 Progress Notes * Denny MELGAROB:1985 (39 yo F)Acc No.[id number]:09/30/2023 Patient: Roro BOWENS Provider: Keysha Hillman :1985 A ge:38 Y S ex:Female Date:09/30/2023 Address:[address] [place], [place] [address]EDIN Tracey [id number] Pcp:Colton Whitaker Subjective: * Chief Complaints: * 1 . Multum To [facility] Conversion Encounter. * Medical History: * Medications: T flakitag Montelukast Sodium 10 MG Tablet 1 tab(s) orally once a day Objective: * Vitals: Assessment: * Assessment: 1. M ild persistent asthma, uncomplicated - J45.30 (Primary) 2 . A llergic rhinitis due to pollen - J30.1 Plan: * Treatment: 2. A llergic rhinitis due to pollen Refill Montelukast Sodium Tablet, 10 MG, 1 tab(s), orally, once a day, 90 days, 90, Refills 1. 3. O thers Refill Pulmicort Flexhaler Aerosol Powder Breath Activated, 90 MCG/ACT, 2 INH, inhaled, 2 times a day, 30 days, 1, Refills 5; S tart Budesonide POWDER, 90 MCG/INH, 2 INH, INHALED, 2 TIMES A DAY, 30 DAYS, 1, Refills 3, Notes to Pharmacist: *Please review and pick correct strength-formulation from [employer] options. If intended option is not shown, discontinue and re-order from Quick Search*.? * Billing Information: * Visit Code: * Procedure Codes: * Electronic signature of Julita VENTURA-Migration on 06/29/2024 at 08:38 AM CDT Sign off status: Pending * Provider: Keysha camacho Migration Date: 09/30/2023 Generated for Ness rivero/Navneet/Yumiko on: 06/29/2024 08:38 AM CDT
--- OUTSIDE RECORDS SUMMARY | 2024-06-29 08:39 | XMS_ITS | Referral Summary ---
Author Organization [address] Address [address] [place] [phone] Care Team Providers Care Transfer Worker Name Role Phone Unknown, Notinfile Primary Care Provider Unavail able Encounters Date Type Department Care Team Description 04/08/2024 8:45 PM [facility] [address] [place] [phone] Emi Matthews NP Lower respiratory infection (Primary Dx) 04/08/2024 Patient Self-Triage [facility] [address] [place] [phone] Mychart, Generic Provider 04/08/2024 Patient Self-Triage [facility] [address] [place] [phone] Mychart, Generic Provider from Last 3 Months Allergies No known active allergies Medications budesonide [...] Active Active Problems No known active problems Social History Tobacco Use Types Packs/Day Years Used Date Smoking Tobacco: Never Assessed Personal Safety Answer Date Recorded Getting School Help Needed Not on file 02/01 Comments Unknown Sex and Gender Information Value Date Recorded Sex Assigned at Not on file Legal Sex Female 10:53 AM CDT Gender Identity Not on file Sexual Orientation Not on file Last Filed Vital Signs Vital Sign Reading [...] 02/02/2024 2:51 PM CDT Plan of Treatment Not on file Insurance [facility] H[facility]PPO Address: [facility] [address] [place] [address] Care Teams Transfer Worker Relationship Specialty Start Date End Date Unknown, Notinfile PCP - General 02/02/24
--- OUTSIDE RECORDS SUMMARY | 2024-06-29 08:39 | XMS_ITS | Clinical Summary ---
Author Organization [facility] Address [address] [place] [id number] Care Team Providers Care Money Counter Name Role Phone Murali Singh MD Primary Care Provider Social History Tobacco Use Types Packs/Day Years Used Date Smoking Tobacco: Never Assessed Comments Unknown Sex and Gender Information Value Date Recorded Sex Assigned at Not on file Legal Sex Female 7:13 PM CDT Gender Identity Not on file Sexual Orientation Not on file Plan of Treatment Health Maintenance Due Date Last Done Comments Cervical Cancer Screening Pa p Smear (Age 30 to 64) Every 3 Years 1987 Annual Physical 1990 Hepatitis C 2005 DTaP, Tdap and Td Vaccines ( 1 - Tdap) 2006 Hepatitis B Vaccines (1 of 3 - 19+ 3-dose series) 2006 Cervical Cancer Screening Pa p with HPV Testing (Age 30 to 64) Every 5 Years 2017 Cervical Cancer Screening with HPV 2017 COVID-19 Vaccine (2023-2 5 season) 2023 Influenza Adult (#1) 2024 HPV Vaccines Aged Out No longer eligi ble based on patient's age to complete this topic Meningococcal B Vaccine Aged Out No l onger eligible based on patient's age to complete this topic Meningococcal Vaccine Aged Out No gallo brittaney eligible based on patient's age to complete this topic Pneumococcal Vaccine: Pediat rics (0 to 5 Years) and At-Risk Patients (6 to 64 Years) Aged Out No longer eligible b ased on patient's age to complete this topic RSV Immunizations Under 20 Months Aged Out No longer eligible based on patient's age to complete this topic Care Teams Money Counter Relationship Specialty Start Date End Date Murali Singh MD [address] [place] [address] PCP - General 12/29/15
[2024-06-29 09:19] LABS: Hematocrit 39.7 % (37.0-47.0); Hemoglobin 12.9 g/dL (12.0-15.0); Mean Corpuscular HGB Conc 32.5 g/dl (32-36); Mean Corpuscular Hemoglobin 28.1 pg (26-34); Mean Corpuscular Volume 86.5 fl (80-100); Mean Platelet Volume 10.9 fl (7.4-10.4); Platelet Count Result 163 k/mm3 (150-375); Red Blood Count 4.59 M/mm3 (4.2-5.4); Red Cell Distribution Width 12.2 % (11.5-14.5); White Blood Count 4.6 K/mm3 (4.5-10.0)
== END 2024-06-29 08:36 | disposition home or self-care (01) ==
LOC: ANHLAB 08:36
PROVIDERS: PCP Nurse Practitioner; Visit Provider Nurse Practitioner
DX: D70.9 Neutropenia, unspecified (principal)
CPT/HCPCS: 36415; 85027